=== PATIENT | female | born 1955 | race African-American/Black ===

== ENCOUNTER 2016-10-25 18:55 | Emergency (ER) | payer OTHER ==
[~2016-10-25] VITALS: Ht 167.6 cm; Wt 130.0 kg
[~2016-10-25 18:55] MED LIST: PANT20 PO
[2016-10-25 19:01] VITALS: BP 219/110; PULSE 71; RESP 22; TEMP 98.8; O2SAT 94
[2016-10-25] MEDS ORDERED: SODIUM CHLORIDE 0.9% FLUSH 10 ML FLUSH IVF PRN (19:15)
--- NOTE | 2016-10-25 19:29 | PD ---
HPI Chief Complaint: Neuro Symptoms/ Deficits Time Seen by Provider: 19:05 Travel History International Travel<30 days: No Contact w/Intl Traveler<30days: No Traveled to known affect area: No History of Present Illness HPI 61 YO F with PMH of HTN presents to the ED for evaluation of possible left- sided facial droop. Patient's son is at bedside and states that he last saw her normal around 11 AM. States that when he saw her this evening he thought that the left side of her face looked a little droopy and so brought her to the ED. On presentation the patient endorses right-sided facial pain, chronic left shoulder pain and chronic low back pain and chronic left leg pain. She states that the facial pain started "a few days ago" she denies headaches, fevers, chills, sinus congestion, rhinorrhea, sore throat, cough, shortness of breath, chest pain, abdominal pain, nausea, vomiting, dysuria. PFSH Past Medical History Cardiac Catheterization: No Cardiovascular Problems: Yes High Cholesterol: No Congestive Heart Failure: No Coronary Artery Disease: Yes Diabetes: No Diminished Hearing: No Hypertension: Yes Medical other: Yes (aortic ectasia, b/l iliac artery aneurysm, vitamin D deficiency) Musculoskeletal: Yes (" NO CARTLIAGE IN BILAT KNEES") Respiratory: Yes (PNEUMONIA) Renal Failure: Yes (chronic kidney disease stage 3) Tetanus Vaccination: Unknown Influenza Vaccination: No ?: Not Past Surgical History Coronary Artery Bypass Graft: No Hysterectomy: Yes (PARTIAL) Other Surgery: Yes (trach placement and removal) Family History Family Myocardial Infarction: Yes Social History Alcohol Use: Yes (1 TIME A MONTH) Tobacco Use: Yes (1/2 PACK A DAY-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) Substance Use: No Allergies-Medications (Allergen,Severity, Reaction): Coded Allergies: Morphine (Verified Allergy, Severe, Seizures, 11/10/10) Shellfish (Verified Allergy, Mild, ABDOMINAL PAIN, 05/13/13) Reported Meds & Prescriptions Reported Meds & Active Scripts Active Procardia XL (Nifedipine) 30 Mg Tab 30 Mg PO DAILY Augmentin (Amoxicillin-Clavulanate) 875-125 Mg Tab 1 Tab PO BID Reported Atorvastatin (Atorvastatin Calcium) 10 Mg Tab 10 Mg PO HS Ergocalciferol 50,000 Unit Cap 50,000 Units PO Q7D Losartan (Losartan Potassium) 25 Mg Tab 25 Mg PO DAILY Review of Systems Except as stated in HPI: all other systems reviewed are Neg Physical Exam Narrative GENERAL: Well-nourished, well-developed, tearful obese black female in no acute distress SKIN: Warm and dry. HEAD: Normocephalic. Atraumatic. EYES: No scleral icterus. No injection or drainage. PERRLA. EOMI. ENT: Pearly coronado tympanic membranes bilaterally. Nasal mucosa is moist. Mild edema of the right maxillary area. ++ TTP of the right maxillary sinus Oropharynx without erythema, edema or exudate. NECK: Supple, trachea midline. No JVD or lymphadenopathy. CARDIOVASCULAR: Regular rate and rhythm without murmurs, gallops, or rubs. 2+ DP and radial pulses bilaterally. RESPIRATORY: Breath sounds clear and equal bilaterally. No accessory muscle use. GASTROINTESTINAL: Abdomen soft, non-tender, nondistended. + Bowel sounds MUSCULOSKELETAL: No cyanosis, or edema. Chronic left shoulder, low back and left leg pain. Some limitations ROM secondary to this pain. Trace edema BLE. NEUROLOGICAL: Awake and alert. Cranial nerves II through XII intact. Motor and sensory grossly within normal limits. Five out of 5 muscle strength in all muscle groups. Normal speech. No pronator drift. BACK: Nontender without obvious deformity. No CVA tenderness. Data Data Last Documented VS Vital Signs Date Time Temp Pulse Resp B/P Pulse Ox O2 Delivery O2 Flow Rate FiO2 10/25/16 22:26 63 20 193/118 95 Room Air 10/25/16 19:01 98.8 Orders Electrocardiogram (10/25/16 19:09) Complete Blood Count With Diff (10/25/16 19:09) Comprehensive Metabolic Panel (10/25/16 19:09) Ckmb (Isoenzyme) Profile (10/25/16 19:09) Troponin I (10/25/16 19:09) Act Partial Throm Time (Ptt) (10/25/16 19:09) Prothrombin Time / Inr (Pt) (10/25/16 19:09) Urinalysis - C+S If Indicated (10/25/16 19:09) Ct Brain W/O Iv Contrast(Rout) (10/25/16 19:09) Ecg Monitoring (10/25/16 19:09) Iv Access Insert/Monitor (10/25/16 19:09) Oximetry (10/25/16 19:09) Sodium Chloride 0.9% Flush (Ns Flush) (10/25/16 19:15) CKMB (10/25/16 19:15) CKMB% (10/25/16 19:15) Acetaminophen (Tylenol) (10/25/16 21:30) Clonidine (Catapres) (10/25/16 22:30) Acetamin-Hydrocod 325-5 Mg ([place] 5-325 (10/25/16 22:30) Labs Laboratory Tests Test 10/25/16 10/25/16 19:15 21:30 White Blood Count 8.7 TH/MM3 Red Blood Count 5.44 MIL/MM3 Hemoglobin 15.7 GM/DL Hematocrit 47.6 % Mean Corpuscular Volume 87.6 FL Mean Corpuscular Hemoglobin 28.9 PG Mean Corpuscular Hemoglobin 33.0 % Concent Red Cell Distribution Width 16.1 % Platelet Count 153 TH/MM3 Mean Platelet Volume 11.0 FL Neutrophils (%) (Auto) 48.3 % Lymphocytes (%) (Auto) 38.0 % Monocytes (%) (Auto) 9.7 % Eosinophils (%) (Auto) 3.0 % Basophils (%) (Auto) 1.0 % Neutrophils # (Auto) 4.2 TH/MM3 Lymphocytes # (Auto) 3.3 TH/MM3 Monocytes # (Auto) 0.8 TH/MM3 Eosinophils # (Auto) 0.3 TH/MM3 Basophils # (Auto) 0.1 TH/MM3 CBC Comment DIFF FINAL Differential Comment Prothrombin Time 11.2 SEC Prothromb Time International 1.0 RATIO Ratio Activated Partial 26.4 SEC Thromboplast Time Sodium Level 139 MEQ/L Potassium Level 5.6 MEQ/L Chloride Level 106 MEQ/L Carbon Dioxide Level 23.0 MEQ/L Anion Gap 10 MEQ/L Blood Urea Nitrogen 20 MG/DL Creatinine 1.45 MG/DL Estimat Glomerular Filtration 44 ML/MIN Rate Random Glucose 104 MG/DL Calcium Level 9.2 MG/DL Total Bilirubin 0.6 MG/DL Aspartate Amino Transf 41 U/L (AST/SGOT) Alanine Aminotransferase 28 U/L (ALT/SGPT) Alkaline Phosphatase 151 U/L Total Creatine Kinase 179 U/L Creatine Kinase MB 1.2 NG/ML Troponin I LESS THAN 0.02 NG/ML Total Protein 8.5 GM/DL Albumin 3.3 GM/DL Urine Color YELLOW Urine Turbidity CLEAR Urine pH 6.5 Urine Specific [place] 1.016 Urine Protein 30 mg/dL Urine Glucose (UA) NEG mg/dL Urine Ketones NEG mg/dL Urine Occult Blood NEG Urine Nitrite NEG Urine Bilirubin NEG Urine Urobilinogen 2.0 MG/DL Urine Leukocyte Esterase NEG Urine RBC LESS THAN 1 /hpf Urine WBC LESS THAN 1 /hpf Urine Squamous Epithelial 2 /hpf Cells Urine Mucus FEW /lpf Microscopic Urinalysis Comment CULT NOT INDICATED MDM Medical Decision Making Medical Screen Exam Complete: Yes Emergency Medical Condition: Yes Differential Diagnosis hypertension versus hypertensive urgency versus ICH versus bells palsy versus UTI versus electrolyte abnormality versus other Narrative Course 61 YO F with PMH of HTN presents to the ED for evaluation of possible left- sided facial droop. Patient's son is at bedside and states that he last saw her normal around 11 AM. States that when he saw her this evening he thought that the left side of her face looked a little droopy and so brought her to the ED. On presentation the patient endorses right-sided facial pain, chronic left shoulder pain and chronic low back pain and chronic left leg pain. She states that the facial pain started "a few days ago" she denies headaches, fevers, chills, sinus congestion, rhinorrhea, sore throat, cough, shortness of breath, chest pain, abdominal pain, nausea, vomiting, dysuria. Patient's hypertensive, 219/110 on presentation. No focal neuro deficits noted on physical exam. She does have some weakness of the left arm but I think this is secondary to her musculoskeletal pain. There is mild edema of the right maxillary area and tenderness to palpation of the maxillary sinus. Trace edema in the bilateral lower extremities physical exam is otherwise unremarkable. EKG rate 62, sinus rhythm. MS interval 156, QRS 121, QTc 441. Normal axis. Right bundle branch block. No ST elevations. Reviewed by Dr. Byers. Cardiac enzymes negative 1. CBC: WBC 8.7, hemoglobin 15.7. Coags: INR 1.0. CMP: BUN 20, creatinine 1.45, chronic per chart review. UA: No culture indicated. CT of the head: Right maxillary sinusitis. No acute findings in the brain per radiology read. Discussed the results for constipation. The patient states that she is noncompliant with her antihypertensive medication secondary to headache side effect. She also indicated that she was noncompliant with her other medications. I wrote a prescription for Augmentin 875 twice a day 5 days. She is instructed take medication as prescribed. She complained of her chronic pain and was offered Tylenol which she declined. Dr. Byers evaluated the patient and administered 5 mg Lortab. Hypertension continued in the emergency room she was administered 0.1 mg clonidine. We provided a prescription for Procardia. Patient's instructed to follow-up with the primary care soon as possible for further recommendations on blood pressure medications. I did explain the long and short-term risks of such high blood pressure to the patient. Patient family indicated understanding of instructions and are agreeable to the care plan. This patient is stable and discharged home. Diagnosis Primary Impression: Right maxillary sinusitis Additional Impressions: Chronic hypertension Noncompliance with medication regimen Referrals: Primary Care Physician Patient Instructions: General Instructions, Sinusitis (ED) Additional Instructions: Rest, hydrate. Take all antibiotics as prescribed, even if your symptoms resolve. Follow-up with your primary care provider tomorrow regarding her difficulties with current blood pressure medications. Return to the ED for any urgent or emergent medical condition. Med/Other Pt SpecificInfo: Prescription(s) given Scripts Nifedipine ER 24 HR (Procardia XL)30 Mg Tab30 Mg PO DAILY #30 TAB Ref 0 Prov:Shara Byers MD 10/25/16 Amoxicillin-Clavulanate (Augmentin)875-125 Mg Tab1 Tab PO BID #10 TAB Ref 0 Prov:Shara Byers MD 10/25/16 Disposition: 01 DISCHARGE HOME Condition: Stable Leanna Lima Oct 25, 2016 19:29
--- NOTE | 2016-10-25 19:31 | RADRPT ---
EXAM DATE/TIME: 10/25/2016 19:18 [facility] COMPARISON: No previous studies available for comparison. INDICATIONS : Altered mental status, general weakness and right sided facial pain today. RADIATION DOSE: 56.35 CTDIvol (mGy) MEDICAL HISTORY : Cardiovascular disease. Hypertension. SURGICAL HISTORY : Hysterectomy. ENCOUNTER: Initial ACUITY: 1 day PAIN SCALE: 5/10 LOCATION: Right face TECHNIQUE: Multiple contiguous axial images were obtained of the head. Using automated exposure control and adj ustment of the mA and/or kV according to patient size, radiation dose was kept as low as reasonably a chievable to obtain optimal diagnostic quality images. FINDINGS: CEREBRUM: The ventricles are normal for age. No evidence of midline shift, mass lesion, hemorrhage or acute in farction. No extra-axial fluid collections are seen. POSTERIOR FOSSA: The cerebellum and brainstem are intact. The 4th ventricle is midline. The cerebellopontine angle i s unremarkable. EXTRACRANIAL: There is an air-fluid level in the right maxillary sinus. There is mild mucosal thickening in the ri ght sphenoid sinus. The visualized portion of the orbits is intact. SKULL: The calvaria is intact. No evidence of skull fracture. CONCLUSION: 1. Air-fluid level in right maxillary sinus suggests possible acute sinusitis. 2. No acute findings in the brain. Colby Ford MD on October 25, 2016 at 19:27 Board Certified Radiologist. This report was verified electronically.
[2016-10-25 19:50] VITALS: BP 217/108; PULSE 60; RESP 22; O2SAT 95
[2016-10-25 20:03] LABS: AUTOMATED NEUTROPHIL # 4.2 TH/MM3 (1.8-7.7); BASOPHIL # 0.1 TH/MM3 (0-0.2); EOSINOPHIL # 0.3 TH/MM3 (0-0.4); HEMATOCRIT 47.6 % (35.0-46.0); HEMO FLAGS DIFF FINAL; LYMPHOCYTE # 3.3 TH/MM3 (1.0-4.8); MEAN CELL VOLUME 87.6 FL (80.0-100.0); MEAN CORPUSCULAR HEMOGLOBIN 28.9 PG (27.0-34.0); MONO % 9.7 % (0.0-8.0); NEUT % 48.3 % (16.0-70.0); PLATELET COUNT 153 TH/MM3 (150-450); RED BLOOD COUNT 5.44 MIL/MM3 (4.00-5.30); RED CELL DISTRIBUTION WIDTH 16.1 % (11.6-17.2); WHITE BLOOD COUNT 8.7 TH/MM3 (4.0-11.0)
[2016-10-25] MEDS ORDERED: ATOR10TA15 PO (20:07)
[2016-10-25] MEDS ORDERED: ERGO1CAP30 PO (20:07)
[2016-10-25] MEDS ORDERED: LOSA25TA PO (20:07)
[2016-10-25 20:12] LABS: APTT (PATIENT) 26.4 SEC (24.3-30.1); PROTHROMBIN TIME - PATIENT 11.2 SEC (9.8-11.6)
[2016-10-25 20:30] VITALS: BP 204/113; PULSE 60; RESP 20; O2SAT 94
[2016-10-25 20:32] LABS: ALT (GPT) 28 U/L (10-53)
[2016-10-25 20:39] LABS: ALKALINE PHOSPHATASE 151 U/L (45-117); ANION GAP 10 MEQ/L (5-15); AST (GOT) 41 U/L (15-37); BLOOD UREA NITROGEN 20 MG/DL (7-18); CHLORIDE 106 MEQ/L (98-107); CREATINE KINASE 179 U/L (26-192); GLOMERULAR FILTRATION RATE 44 ML/MIN (>89); POTASSIUM 5.6 MEQ/L (3.5-5.1); SODIUM (NA) 139 MEQ/L (136-145); TOTAL BILIRUBIN ADULT 0.6 MG/DL (0.2-1.0)
[2016-10-25 20:51] LABS: CKMB 1.2 NG/ML (0.5-3.6)
[2016-10-25 21:00] VITALS: BP 207/93; PULSE 62; RESP 20; O2SAT 94
--- NOTE | 2016-10-25 21:27 | PD ---
Physical Exam Narrative General: The patient is a well-developed well-nourished female in no acute distress. Head and Neck exam: Head is normocephalic atraumatic. Eyes: EOMI, pupils are equal round and reactive to light. Nose: Midline septum with mildly erythematous edematous nasal mucosa. Sinuses: The patient has sinus tenderness on palpation over the right maxillary sinus. Mouth: Dentition unremarkable. Moist mucus membranes. Posterior oropharynx is not erythematous. No tonsillar hypertrophy. Uvula midline. Airway patent. Neck: No palpable lymphadenopathy. No nuchal rigidity. No thyromegaly. Cardiovascular: Regular rate and rhythm without murmurs, gallops, or rubs. No pulse deficit to the extremities. Lungs: Clear to auscultation bilaterally. No wheezes, rhonchi, or rales. Abdomen: Soft, without tenderness to palpation in all 4 quadrants of the abdomen. No guarding, rebound, or rigidity. Normal bowel sounds are audible. No tenderness on palpation of McBurney's point. Extremities: No clubbing or cyanosis. The patient has trace pedal edema. 2+ pulses in all 4 extremities. Neurologic Exam: Cranial nerves 2-12 were intact on exam. Strength is 5/5 in all 4 extremities. No sensory deficits noted. Skin Exam: No rash noted. Intact skin that is warm and dry. Data Data Last Documented VS Vital Signs Date Time Temp Pulse Resp B/P Pulse Ox O2 Delivery O2 Flow Rate FiO2 10/25/16 22:26 63 20 193/118 95 Room Air 10/25/16 19:01 98.8 Orders Electrocardiogram (10/25/16 19:09) Complete Blood Count With Diff (10/25/16 19:) Comprehensive Metabolic Panel (10/25/16 19:) Ckmb (Isoenzyme) Profile (10/25/16 19:09) Troponin I (10/25/16 19:) Act Partial Throm Time (Ptt) (10/25/16:) Prothrombin Time / Inr (Pt) (10/25/16 19:09) Urinalysis - C+S If Indicated (10/25/16 19:09) Ct Brain W/O Iv Contrast(Rout) (10/25/16 19:09) Ecg Monitoring (10/25/16:) Iv Access Insert/Monitor (10/25/16 19:09) Oximetry (10/25/16 19:09) Sodium Chloride 0.9% Flush (Ns Flush) (10/25/16 19:15) CKMB (10/25/16 19:15) CKMB% (10/25/16 19:15) Acetaminophen (Tylenol) (10/25/16 21:30) Clonidine (Catapres) (10/25/16 22:30) Acetamin-Hydrocod 325-5 Mg ([place] 5-325 (10/25/16 22:30) Labs Laboratory Tests Test 10/25/16 10/25/16 19:15 21:30 White Blood Count 8.7 TH/MM3 Red Blood Count 5.44 MIL/MM3 Hemoglobin 15.7 GM/DL Hematocrit 47.6 % Mean Corpuscular Volume 87.6 FL Mean Corpuscular Hemoglobin 28.9 PG Mean Corpuscular Hemoglobin 33.0 % Concent Red Cell Distribution Width 16.1 % Platelet Count 153 TH/MM3 Mean Platelet Volume 11.0 FL Neutrophils (%) (Auto) 48.3 % Lymphocytes (%) (Auto) 38.0 % Monocytes (%) (Auto) 9.7 % Eosinophils (%) (Auto) 3.0 % Basophils (%) (Auto) 1.0 % Neutrophils # (Auto) 4.2 TH/MM3 Lymphocytes # (Auto) 3.3 TH/MM3 Monocytes # (Auto) 0.8 TH/MM3 Eosinophils # (Auto) 0.3 TH/MM3 Basophils # (Auto) 0.1 TH/MM3 CBC Comment DIFF FINAL Differential Comment Prothrombin Time 11.2 SEC Prothromb Time International 1.0 RATIO Ratio Activated Partial 26.4 SEC Thromboplast Time Sodium Level 139 MEQ/L Potassium Level 5.6 MEQ/L Chloride Level 106 MEQ/L Carbon Dioxide Level 23.0 MEQ/L Anion Gap 10 MEQ/L Blood Urea Nitrogen 20 MG/DL Creatinine 1.45 MG/DL Estimat Glomerular Filtration 44 ML/MIN Rate Random Glucose 104 MG/DL Calcium Level 9.2 MG/DL Total Bilirubin 0.6 MG/DL Aspartate Amino Transf 41 U/L (AST/SGOT) Alanine Aminotransferase 28 U/L (ALT/SGPT) Alkaline Phosphatase 151 U/L Total Creatine Kinase 179 U/L Creatine Kinase MB 1.2 NG/ML Troponin I LESS THAN 0.02 NG/ML Total Protein 8.5 GM/DL Albumin 3.3 GM/DL Urine Color YELLOW Urine Turbidity CLEAR Urine pH 6.5 Urine Specific [place] 1.016 Urine Protein 30 mg/dL Urine Glucose (UA) NEG mg/dL Urine Ketones NEG mg/dL Urine Occult Blood NEG Urine Nitrite NEG Urine Bilirubin NEG Urine Urobilinogen 2.0 MG/DL Urine Leukocyte Esterase NEG Urine RBC LESS THAN 1 /hpf Urine WBC LESS THAN 1 /hpf Urine Squamous Epithelial 2 /hpf Cells Urine Mucus FEW /lpf Microscopic Urinalysis Comment CULT NOT INDICATED MDM Medical Record Reviewed: Yes Supervised Visit with JOSÉ MIGUEL: Yes Interpretation(s) Last Impressions Head CT 10/25/161908 Signed Impressions: Service Date/Time: Tuesday, October 25, 2016 19:18 - CONCLUSION: 1. Air-fluid level in right maxillary sinus suggests possible acute sinusitis. 2. No acute findings in the brain. Colby Ford MD Narrative Course I, Dr. Byers, have reviewed the advance practice practitioner's documentation and am in agreement, met with the patient face to face, made the diagnosis, and the medical decision making was done by me. The patient was initially evaluated by Leanna. Please see her complete history and physical. *My assessment and Findings: The patient is a 61-year-old female who presents to [facility] emergency department with a reported history of facial pain and what appeared to be facial droop according to the family. The patient denies having any drooling, slurred speech, new extremity weakness, or new numbness or tingling to her extremities. She denies having any difficulty with word finding ability. A workup ensued to further evaluate. The patient's main complaint the size of facial pain is related to chronic pain in her extremities and back. The patient additionally arrives with an elevated blood pressure. The patient reports that her losartan causes her to have headaches, therefore she has not been taking it consistently. The patient's examination revealed a normal neurologic examination with right maxillary sinus tenderness on palpation. During the course of the patients emergency department visit, the patients history, examination, and differential diagnosis were reviewed with the patient. The patient had IV access obtained and blood work sent for analysis. The patient was placed on a cardiac cath tech with oximetry and blood pressure monitoring. The patient was initially provided acetaminophen for pain, however she refuses to take this that she reports that it does not work. The acetaminophen was canceled and the patient was given Lortab 5 mg by mouth 1. The patient was given clonidine 0.1 mg by mouth 1 for hypertension related to her medication noncompliance. The patients laboratory studies were reviewed and remarkable for a white count is 8.7, hemoglobin 15.7, platelets 153, 90.7 monocytes, CMP is remarkable for a potassium of 5.6 with moderate hemolysis noted, BUN 20, creatinine 1.45 in a patient with a history of renal insufficiency, AST 41, alkaline phosphatase 151 , CPK 179, troponin I less than 0.02. PT 11.2, PTT 20 6. urinalysis is unremarkable Radiology studies were reviewed and remarkable for a CT scan of the brain shows an air-fluid level in the right maxillary sinus suggestive of an acute sinusitis , no other acute abnormality noted in the brain. The patient's symptoms appear to be related to an acute maxillary sinusitis. The patient will be discharged home with an antibiotic. The patient was again instructed regarding the importance of close follow-up with her primary care physician regarding her hypertension medication noncompliance. She was agreeable with the plan to try a new medication for hypertension and a different class. The patient was given a prescription for Procardia. The patient is resting comfortably and feels better, is alert and in no distress. The patients results and examination findings were discussed with the patient. The repeat examination is unremarkable and benign. The history, exam, diagnostic testing, and current condition do not suggest any significant pathology to warrant further testing, continued ED treatment, admission, or surgical evaluation at this point. The vital signs have been stable. The patient does not have uncontrollable pain, intractable vomiting, or other significant symptoms. The patient's condition is stable and appropriate for discharge. The patient will pursue further outpatient evaluation with a primary care physician or other designated or consulting physician as indicated in the discharge instructions. The patient expressed understanding and was agreeable with this plan. Diagnosis Primary Impression: Right maxillary sinusitis Additional Impressions: Chronic hypertension Noncompliance with medication regimen Scripts Nifedipine ER 24 HR (Procardia XL)30 Mg Tab30 Mg PO DAILY #30 TAB Ref 0 Prov:Shara Byers MD 10/25/16 Amoxicillin-Clavulanate (Augmentin)875-125 Mg Tab1 Tab PO BID #10 TAB Ref 0 Prov:Shara Byers MD 10/25/16 Shara Byers MD Oct 25, 2016 21:27
[2016-10-25] MEDS ORDERED: ACETAMINOPHEN 325 MG TAB PO ONE (21:30)
[2016-10-25] MEDS ORDERED: AUGM875T3 PO (21:44)
[2016-10-25 21:53] LABS: BLOOD, URINE NEG (NEG); COMMENT (UR) CULT NOT INDICATED; CULTURE IF INDICATED CULT NOT INDICATED; GLUCOSE,URINE NEG (NEG); KETONE, URINE NEG (NEG); MUCUS URINE FEW /lpf (OCC); NITRITE,URINE NEG (NEG); PH, URINE 6.5 (5.0-8.5); SQUAMOUS EPITHELIAL CELL URINE 2 /hpf (0-5); URINE COLOR YELLOW (YELLW/STRAW)
[2016-10-25 22:26] VITALS: BP 193/118; PULSE 63; RESP 20; O2SAT 95
[2016-10-25] MEDS ORDERED: ACETAMINOPHEN/HYDROcodone 325 MG/5 MG TAB PO ONE (22:30)
[2016-10-25] MEDS ORDERED: NIFE1TAB85 PO (22:30)
[2016-10-25] MEDS ORDERED: cloNIDine HCL 0.1 MG TAB PO ONE (22:30)
--- NOTE | 2016-10-26 11:27 | EKG ---
Date Performed: 10/25/2016 Time Performed: 19:12:04 PTAGE: 61 years EKG: Sinus rhythm LEFT ATRIAL ENLARGEMENT RIGHT BUNDLE BRANCH BLOCK Since previous tracing, no significant change note d ABNORMAL ECG PREVIOUS TRACING : 05/13/2013 22.56.56 DOCTOR: Johann Byers Interpretating Date/Time 10/26/2016 11:26:15
== END 2016-10-25 23:22 | disposition home or self-care (01) ==
LOC: NEPE 18:55
DX: J32.0 Chronic maxillary sinusitis (principal); I10 Essential (primary) hypertension; R94.31 Abnormal electrocardiogram [ECG] [EKG]; M25.512 Pain in left shoulder; G89.29 Other chronic pain; M54.5 Low back pain; I25.10 Atherosclerotic heart disease of native coronary artery without angina pectoris; Z91.14 Patient's other noncompliance with medication regimen; F17.210 Nicotine dependence, cigarettes, uncomplicated
CPT/HCPCS: 70450; 80053; 81001; 82550; 82552; 84484; 85025; 85610; 85730; 93005; 99285

== ENCOUNTER 2016-10-27 07:15 | Inpatient (IN) | payer OTHER, MEDICARE ==
[~2016-10-27] VITALS: Ht 167.6 cm; Wt 126.0 kg
[2016-10-27] VITALS (16 sets, daily range): BP systolic 122–139; BP diastolic 60–78; PULSE 34–50; RESP 18–22; TEMP 97.9–99.1; O2SAT 93–98
[~2016-10-27 07:15] MED LIST changes: +ATOR10TA15 PO; +AUGM875T3 PO; +ERGO1CAP30 PO; +LOSA25TA PO; +NIFE1TAB85 PO; -PANT20 PO
[2016-10-27] MEDS ORDERED: AMOX TR K (07:36)
--- NOTE | 2016-10-27 07:55 | PD ---
HPI Chief Complaint: Headache Time Seen by Provider: 07:52 Travel History International Travel<30 days: No Contact w/Intl Traveler<30days: No Traveled to known affect area: No History of Present Illness HPI 61-year-old female patient recently diagnosed with hypertension, started on nifedipine last week for hypertension, seen in the ER for sinusitis last week as well and was started on Augmentin, presents to the ER today because she states that she is continuing to have left-sided headaches and this morning started having palpitations, felt like her heart beat was low, feels like there is some 5 out of 10 substernal pressure. She denies any shortness of breath, fevers, vomiting, or other symptoms. Modifying Factors: None Associated Signs & Symptoms: Palpitations, chest discomfort, ongoing headache Risk Factors: Recent diagnosis of hypertension and sinusitis PFSH Past Medical History Cardiac Catheterization: No Cardiovascular Problems: Yes High Cholesterol: No Congestive Heart Failure: No Coronary Artery Disease: Yes Diabetes: No Diminished Hearing: No Hypertension: Yes Musculoskeletal: Yes (" NO CARTLIAGE IN BILAT KNEES") Respiratory: Yes (PNEUMONIA) Renal Failure: Yes (chronic kidney disease stage 3) Past Surgical History Coronary Artery Bypass Graft: No Hysterectomy: Yes (PARTIAL) Other Surgery: Yes (trach placement and removal) Social History Alcohol Use: Yes (1 TIME A MONTH) Tobacco Use: Yes (1/2 PACK A DAY-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) Substance Use: No Allergies-Medications (Allergen,Severity, Reaction): Coded Allergies: Morphine (Verified Allergy, Severe, Seizures, 10/27/16) Shellfish (Verified Allergy, Mild, ABDOMINAL PAIN, 10/27/16) Reported Meds & Prescriptions Reported Meds & Active Scripts Active Procardia XL (Nifedipine) 30 Mg Tab 30 Mg PO DAILY Reported [Amox Tr-K] 825 Tab BID Atorvastatin (Atorvastatin Calcium) 10 Mg Tab 10 Mg PO HS Ergocalciferol 50,000 Unit Cap 50,000 Units PO Q7D Losartan (Losartan Potassium) 25 Mg Tab 25 Mg PO DAILY Review of Systems Except as stated in HPI: all other systems reviewed are Neg Physical Exam Narrative GENERAL: Well-developed elderly -[place] female patient currently in mild distress, mildly anxious. Awake and oriented 3. SKIN: Focused skin assessment warm/dry. HEAD: Atraumatic. Normocephalic. EYES: Pupils equal and round. No scleral icterus. No injection or drainage. ENT: No nasal bleeding or discharge. Mucous membranes pink and moist. NECK: Trachea midline. No JVD. CARDIOVASCULAR: Slow and regular rhythm. No murmur appreciated. Pulses are present and equal bilaterally. RESPIRATORY: No accessory muscle use. Clear to auscultation. Breath sounds equal bilaterally. GASTROINTESTINAL: Abdomen soft, non-tender, nondistended. Hepatic and splenic margins not palpable. MUSCULOSKELETAL: No obvious deformities. No clubbing. No cyanosis. No edema. NEUROLOGICAL: Awake and alert. No obvious cranial nerve deficits. Motor grossly within normal limits. Normal speech. PSYCHIATRIC: Appropriate mood and affect; insight and judgment normal. Data Data Last Documented VS Vital Signs Date Time Temp Pulse Resp B/P Pulse Ox O2 Delivery O2 Flow Rate FiO2 10/27/16 07:56 43 126/77 132/70 10/27/16 07:53 95 Room Air 10/27/16 07:19 99.1 22 Orders Electrocardiogram (10/27/16 07:52) B-Type Natriuretic Peptide (10/27/16 07:52) Ckmb (Isoenzyme) Profile (10/27/16 07:52) Complete Blood Count With Diff (10/27/16 07:52) Comprehensive Metabolic Panel (10/27/16 07:52) Magnesium (Mg) (10/27/16 07:52) Prothrombin Time / Inr (Pt) (10/27/16 07:52) Act Partial Throm Time (Ptt) (10/27/16 07:52) Troponin I (10/27/16 07:52) Chest, Single Ap (10/27/16 07:52) Ecg Monitoring (10/27/16 07:52) Bilateral Bp Monitoring (10/27/16 07:52) Iv Access Insert/Monitor (10/27/16 07:52) Oximetry (10/27/16 07:52) Oxygen Administration (10/27/16 07:52) Sodium Chloride 0.9% Flush (Ns Flush) (10/27/16 08:00) Consult Cardiology (10/27/16 ) Labs Laboratory Tests Test 10/27/16 07:50 White Blood Count 7.9 TH/MM3 Red Blood Count 5.33 MIL/MM3 Hemoglobin 15.5 GM/DL Hematocrit 46.4 % Mean Corpuscular Volume 87.2 FL Mean Corpuscular Hemoglobin 29.2 PG Mean Corpuscular Hemoglobin 33.4 % Concent Red Cell Distribution Width 16.3 % Platelet Count 138 TH/MM3 Mean Platelet Volume 11.3 FL Neutrophils (%) (Auto) 44.0 % Lymphocytes (%) (Auto) 41.1 % Monocytes (%) (Auto) 12.5 % Eosinophils (%) (Auto) 1.9 % Basophils (%) (Auto) 0.5 % Neutrophils # (Auto) 3.5 TH/MM3 Lymphocytes # (Auto) 3.3 TH/MM3 Monocytes # (Auto) 1.0 TH/MM3 Eosinophils # (Auto) 0.2 TH/MM3 Basophils # (Auto) 0.0 TH/MM3 CBC Comment DIFF FINAL Differential Comment Prothrombin Time 11.4 SEC Prothromb Time International 1.0 RATIO Ratio Activated Partial 26.1 SEC Thromboplast Time Sodium Level 138 MEQ/L Potassium Level 4.2 MEQ/L Chloride Level 106 MEQ/L Carbon Dioxide Level 23.3 MEQ/L Anion Gap 9 MEQ/L Blood Urea Nitrogen 25 MG/DL Creatinine 1.57 MG/DL Estimat Glomerular Filtration 40 ML/MIN Rate Random Glucose 97 MG/DL Calcium Level 9.2 MG/DL Magnesium Level 2.0 MG/DL Total Bilirubin 0.5 MG/DL Aspartate Amino Transf 15 U/L (AST/SGOT) Alanine Aminotransferase 23 U/L (ALT/SGPT) Alkaline Phosphatase 126 U/L Total Creatine Kinase 90 U/L Troponin I 0.02 NG/ML B-Type Natriuretic Peptide 384 PG/ML Total Protein 7.9 GM/DL Albumin 3.3 GM/DL MDM Medical Decision Making Medical Screen Exam Complete: Yes Emergency Medical Condition: Yes Medical Record Reviewed: Yes Interpretation(s) EKG shows idioventricular rhythm at a rate of 38 bpm with no signs of acute ST- T elevations but there are notable T-wave inversions in the inferior leads. Differential Diagnosis Palpitations, headaches, chest discomfortdysrhythmias versus ACS versus dehydration versus metabolic issues versus sepsis Narrative Course Case was discussed with Dr. Dario cardenas who saw the EKG and states she will see the patient. Lab work did not indicate any significant metabolic issues and cardiac enzymes are negative. Case is discussed with Dr. Patel for admission. Diagnosis Primary Impression: Symptomatic bradycardia Additional Impression: Chest pain Admitting Information Admitting Physician Requests: Admit Ryan Garcia MD Oct 27, 2016 07:55
[2016-10-27] MEDS ORDERED: SODIUM CHLORIDE 0.9% FLUSH 10 ML FLUSH IVF PRN (08:00)
[2016-10-27 08:36] LABS: APTT (PATIENT) 26.1 SEC (24.3-30.1); PROTHROMBIN TIME - PATIENT 11.4 SEC (9.8-11.6)
[2016-10-27 08:37] LABS: AUTOMATED NEUTROPHIL # 3.5 TH/MM3 (1.8-7.7); BASOPHIL % 0.5 % (0.0-2.0); EOSINOPHIL # 0.2 TH/MM3 (0-0.4); EOSINOPHIL % 1.9 % (0.0-4.0); HEMATOCRIT 46.4 % (35.0-46.0); HEMO FLAGS DIFF FINAL; LYMPH % 41.1 % (9.0-44.0); LYMPHOCYTE # 3.3 TH/MM3 (1.0-4.8); MEAN CELL VOLUME 87.2 FL (80.0-100.0); MEAN CORPUSCULAR HEMOGLOBIN 29.2 PG (27.0-34.0); MEAN CORPUSCULAR HGB CONC 33.4 % (32.0-36.0); MONO % 12.5 % (0.0-8.0); PLATELET COUNT 138 TH/MM3 (150-450); RED BLOOD COUNT 5.33 MIL/MM3 (4.00-5.30); RED CELL DISTRIBUTION WIDTH 16.3 % (11.6-17.2); WHITE BLOOD COUNT 7.9 TH/MM3 (4.0-11.0)
[2016-10-27 08:47] LABS: ALKALINE PHOSPHATASE 126 U/L (45-117); ALT (GPT) 23 U/L (10-53); ANION GAP 9 MEQ/L (5-15); AST (GOT) 15 U/L (15-37); BICARBONATE 23.3 MEQ/L (21.0-32.0); BLOOD UREA NITROGEN 25 MG/DL (7-18); CHLORIDE 106 MEQ/L (98-107); GLOMERULAR FILTRATION RATE 40 ML/MIN (>89); POTASSIUM 4.2 MEQ/L (3.5-5.1); SODIUM (NA) 138 MEQ/L (136-145); TOTAL BILIRUBIN ADULT 0.5 MG/DL (0.2-1.0)
[2016-10-27 08:57] LABS: CREATINE KINASE 90 U/L (26-192)
--- NOTE | 2016-10-27 09:06 | RADRPT ---
EXAM DATE/TIME: 10/27/2016 07:57 [facility] COMPARISON: CHEST SINGLE AP, May 13, 2013, 23:04. INDICATIONS : Shortness of breath. MEDICAL HISTORY : Hypertension. Renal failure, chronic. Coronary Artery Disease SURGICAL HISTORY : None. ENCOUNTER: Initial ACUITY: 3 days PAIN SCORE: 0/10 LOCATION: Bilateral chest FINDINGS: A single view of the chest demonstrates the lungs to be symmetrically aerated without evidence of mas s, infiltrate or effusion. The cardiomediastinal contours are unremarkable. Osseous structures are intact. CONCLUSION: No acute disease. No significant change has occurred. Keenan Bradley MD on October 27, 2016 at 9:04 Board Certified Radiologist. This report was verified electronically.
[2016-10-27] MEDS ORDERED: SODIUM CHLORIDE 0.9% FLUSH 10 ML FLUSH IV FLUSH PRN (09:30)
[2016-10-27] MEDS ORDERED: ACETAMINOPHEN 325 MG TAB PO PRN (09:30)
[2016-10-27] MEDS ORDERED: NALOXONE HCL 0.4 MG/ML AMP IV PRN (09:30)
[2016-10-27] MEDS ORDERED: ONDANSETRON HCL 4 MG/2 ML VIAL IVP PRN (09:30)
[2016-10-27] MEDS ORDERED: ONDANSETRON HCL 4 MG/2 ML VIAL IV PUSH ONE (09:30)
[2016-10-27] MEDS: SODIUM CHLOR 0.9% 1000 ML INJ 1,000 ML IV SCH ×2 (09:37→22:40)
--- NOTE | 2016-10-27 10:10 | MB ---
cc: GARY ABURTO MD DATE OF CONSULTATION 10/27/2016 DATE OF 1955 REASON FOR CONSULTATION Bradycardia HISTORY OF PRESENT ILLNESS Ms. Leah Verma is a 61-year-old female who does have a history of hypertension. She presented to the emergency room with complaints of headache and a slow heart rate. She indeed was found to have a heart rate around 40 and cardiology was subsequently consulted. Of note, the patient was in the emergency room on 10-25 when she presented with a possible left-sided facial droop. She was subsequently diagnosed with a right maxillary sinusitis, chronic hypertension and noncompliance. The patient reports to me that her losartan was causing severe headache and thus she could not take that medication. Regarding her facial droop, this was felt to be either actually facial pain and apparently related to the sinusitis. She was subsequently started on Augmentin and Nifedical XL. Her losartan was discontinued. The patient today denies any complaints of chest pain, shortness of breath, weakness or dizziness. She does note that her heart rate is slow by palpation as she checked her pulse. She does complain of the headache and that has caused some nausea. She denies any chest pain, but does report that she had some indigestion that was relieved with belching. PAST MEDICAL HISTORY Significant for: 1. Hypertension 2. Hyperlipidemia 3. Sinusitis 4. Pneumonia ALLERGIES MORPHINE AND SHELLFISH OUTPATIENT MEDICATIONS Include: 1. Procardia 2. Atorvastatin REVIEW OF SYSTEMS Except as mentioned in HPI, all 12 systems are negative. SOCIAL HISTORY The patient does occasionally have alcohol. She smokes a half pack of cigarettes a day. FAMILY HISTORY Positive for hypertension. PHYSICAL EXAM On physical examination, vital signs 43, 126/77 with a respiratory rate of 20. GENERAL: She is a well-appearing, morbidly obese female who is in no apparent distress. NECK: Her neck is free from JVD. LUNGS: The lungs are bilaterally clear to auscultation. CARDIOVASCULAR: On examination, she has normal S1 and S2. I did not appreciate any murmurs, rubs or gallops. ABDOMEN: Soft. EXTREMITIES: Free from edema. EKG shows a junctional escape rhythm with interventricular conduction delay. There are nonspecific ST-T wave changes. Telemetry does show intermittent complete heart block alternating with this junctional escape rhythm. Head CT does show a air-fluid levels in the right maxillary sinus suggesting possible acute sinusitis. There were no acute findings in the brain. LABORATORY VALUES Hemoglobin 15.5. The creatinine is 1.57. The troponin is 0.02 and BMP is 384. IMPRESSION Complete heart block. The patient does have a heart rate around 40. She does dip down to around 36, but is amazingly completely asymptomatic. Thus at this point, I would not actively pace her. I did debate whether to start her on Isuprel. For both of these issues so asymptomatic, I would not start them. The pace is at the bedside. The Nifedical will be stopped as there is a small AV letha blocking property to this. The Nifedical will be stopped as there is a small AV letha blocking properties to this. I am also concerned that it may have been in part exacerbated by the nausea and a vagal response. In any case, she will be observed closely for this. I did discuss the possibility of a permanent pacemaker with her. She is adamantly opposed to that at this time. As well with possible sinusitis/UTI, this would be suboptimal timing. Thus at this point, we will continue with medical management and consider pacer as appropriate in several days. Hypertension - The patient does have some hypertension and has had problems with losartan. She as well is having some renal insufficiency. I am going to place her on amlodipine 5 mg a day. Headaches - This will be managed by the primary team. Sinusitis - This will also be managed by the primary team. Gary Aburto M.D. DEYA/JOSLYN /9:38 AM /10:00 AM
[2016-10-27 13:43] LABS: BLOOD, URINE NEG (NEG); COMMENT (UR) CULT NOT INDICATED; CULTURE IF INDICATED CULT NOT INDICATED; GLUCOSE,URINE NEG (NEG); HYALINE CAST, URINE 4 /lpf (RARE); KETONE, URINE NEG (NEG); MUCUS URINE FEW /lpf (OCC); NITRITE,URINE NEG (NEG); PH, URINE 5.5 (5.0-8.5); SQUAMOUS EPITHELIAL CELL URINE 8 /hpf (0-5); URINE COLOR YELLOW (YELLW/STRAW)
--- NOTE | 2016-10-27 13:58 | EKG ---
Date Performed: 10/27/2016 Time Performed: 07:55:38 PTAGE: 61 years EKG: BASELINE ARTIFACT PRESENT. UNCERTAIN REGULAR RHYTHM MARKED RIGHT AXIS DEVIATION INTRAVENTRI CULAR CONDUCTION DELAY PROBABLE LATERAL MYOCARDIAL INFARCTION ABNORMAL ECG INTERPRETATION BASED ON A DEFAULT AGE OF 40 YEARS I cannot accurately interpret with baseline artifact. NO PREVIOUS TRACING DOCTOR: Kunal Shah Interpretating Date/Time 10/27/2016 13:57:09
--- NOTE | 2016-10-27 15:40 | HHI.HP ---
[facility] Service [facility] Primary Care Physician Kunal Arguello Admission Diagnosis symptomatic bradycardia/chest pain Diagnoses: Chief Complaint: Slow heart rate and headache Travel History International Travel<30 Days: No Contact w/Intl Traveler <30 Da: No Traveled to Known Affected Are: No History of Present Illness The patient is a 61-year-old female with a past medical history of hypertension who is presenting to the hospital with a slow heart rate and headache. The patient came to the hospital on the because of a severe headache. She was found to be hypertensive and also had sinusitis. She was discharged on nifedipine and Augmentin. The patient continued to have headaches. She describes the headache as like a migraine. It is a severe headache at the top of her head and radiates down the back of the right side of her head and down her neck. She says she has been getting these severe headaches ever since she was started on a blood pressure medication on October 15. During the patient's episode of headache she wanted to feel her pulse to see if everything was all right. She said she had a hard time feeling of irregular heartbeat so she came to the hospital. The patient says her headache is gone. She said she did talk with the catering assistant earlier and has no interest in having a pacemaker placed. She mentions that medications seem to hurt her body and does not like to take them if she does not absolutely need them. She says vitamin D hurts the bones of her legs. Review of Systems Except as stated in HPI: all other systems reviewed are Neg Past Family Social History Past Medical History Hypertension Pneumonia status post intubation Migraines Alcohol abuse Past Surgical History Partial hysterectomy Allergies: Coded Allergies: Morphine (Verified Allergy, Severe, Seizures, 10/27/16) Shellfish (Verified Allergy, Mild, ABDOMINAL PAIN, 10/27/16) Active Ordered Medications Current Medications Medications (Trade) Dose Ordered Sig/Chip Route Start Time Stop Time Status Last Admin (NS 1000 ml Inj) 1,000 ml @ 75 mls/hr [id number] IV 10/27/16 09:20 10/27/16 22:39 10/27/16 09:37 (NS Flush) 2 ml UNSCH PRN IV FLUSH 10/27/16 09:30 (NS Flush) 2 ml BID IV FLUSH 10/27/16 21:00 (Tylenol) 650 mg Q4H PRN PO 10/27/16 09:30 (Zofran Inj) 4 mg Q6H PRN IVP 10/27/16 09:30 (Tylenol) 650 mg Q6H PRN PO 10/27/16 09:30 (Barbara-Colace) 1 tab BID PO 10/27/16 21:00 (Lipitor) 10 mg HS PO 10/27/16 21:00 (Norvasc) 5 mg DAILY PO 10/28/16 09:00 Family History Her mother had cirrhosis from alcohol abuse Social History The patient quit drinking in 2006. She quit smoking last year. She denies any drug use. Physical Exam Vital Signs Vital Signs Date Time Temp Pulse Resp B/P Pulse Ox O2 Delivery O2 Flow Rate FiO2 10/27/16 15:00 40 10/27/16 15:00 98.1 36 20 137/60 93 10/27/16 13:10 36 18 122/75 95 Room Air 10/27/16 12:30 36 18 124/68 97 Room Air 10/27/16 11:00 38 18 125/78 96 Room Air 10/27/16 09:00 38 139/65 10/27/16 07:56 43 126/77 132/70 10/27/16 07:53 95 Room Air 10/27/16 07:53 95 Room Air 10/27/16 07:19 99.1 41 22 135/71 97 Physical Exam GENERAL: This is a well-nourished, well-developed patient, in no apparent distress. SKIN: No rashes, ecchymoses or lesions. Cool and dry. HEAD: Atraumatic. Normocephalic. No temporal or scalp tenderness. EYES: Pupils equal round and reactive. Extraocular motions intact. No scleral icterus. No injection or drainage. ENT: Nose without bleeding, purulent drainage or septal hematoma. Throat without erythema, tonsillar hypertrophy or exudate. Uvula midline. Airway patent. NECK: Trachea midline. No JVD or lymphadenopathy. Supple, nontender, no meningeal signs. CARDIOVASCULAR: Bradycardic without murmurs, gallops, or rubs. RESPIRATORY: Clear to auscultation. Breath sounds equal bilaterally. No wheezes , rales, or rhonchi. GASTROINTESTINAL: Abdomen soft, non-tender, nondistended. No hepato-splenomegaly , or palpable masses. No guarding. MUSCULOSKELETAL: Extremities without clubbing, cyanosis. Trace edema. NEUROLOGICAL: Awake and alert. Cranial nerves II through XII intact. Motor and sensory grossly within normal limits. Five out of 5 muscle strength in all muscle groups. Normal speech. PSYCH: Anxious at times. Laboratory Laboratory Tests Test 10/27/16 10/27/16 07:50 13:15 White Blood Count 7.9 Red Blood Count 5.33 Hemoglobin 15.5 Hematocrit 46.4 Mean Corpuscular Volume 87.2 Mean Corpuscular Hemoglobin 29.2 Mean Corpuscular Hemoglobin 33.4 Concent Red Cell Distribution Width 16.3 Platelet Count 138 Mean Platelet Volume 11.3 Neutrophils (%) (Auto) 44.0 Lymphocytes (%) (Auto) 41.1 Monocytes (%) (Auto) 12.5 Eosinophils (%) (Auto) 1.9 Basophils (%) (Auto) 0.5 Neutrophils # (Auto) 3.5 Lymphocytes # (Auto) 3.3 Monocytes # (Auto) 1.0 Eosinophils # (Auto) 0.2 Basophils # (Auto) 0.0 CBC Comment DIFF FINAL Differential Comment Prothrombin Time 11.4 Prothromb Time International 1.0 Ratio Activated Partial 26.1 Thromboplast Time Sodium Level 138 Potassium Level 4.2 Chloride Level 106 Carbon Dioxide Level 23.3 Anion Gap 9 Blood Urea Nitrogen 25 Creatinine 1.57 Estimat Glomerular Filtration 40 Rate Random Glucose 97 Calcium Level 9.2 Magnesium Level 2.0 Total Bilirubin 0.5 Aspartate Amino Transf 15 (AST/SGOT) Alanine Aminotransferase 23 (ALT/SGPT) Alkaline Phosphatase 126 Total Creatine Kinase 90 Troponin I 0.02 B-Type Natriuretic Peptide 384 Total Protein 7.9 Albumin 3.3 Urine Color YELLOW Urine Turbidity HAZY Urine pH 5.5 Urine Specific Mittie 1.032 Urine Protein 100 Urine Glucose (UA) NEG Urine Ketones NEG Urine Occult Blood NEG Urine Nitrite NEG Urine Bilirubin NEG Urine Urobilinogen 4.0 Urine Leukocyte Esterase NEG Urine RBC 1 Urine WBC 1 Urine Squamous Epithelial 8 Cells Urine Hyaline Casts 4 Urine Mucus FEW Microscopic Urinalysis Comment CULT NOT INDICATED Result Diagram: 10/27/16 0750 10/27/16 075 Imaging Last Impressions Chest X-Ray 10/27/16751 Signed Impressions: Service Date/Time: Thursday, October 27, 2016 07:57 - CONCLUSION: No acute disease. No significant change has occurred. Keenan Bradley MD Assessment and Plan Assessment and Plan Complete heart block The patient noticed her pulse was slow and was found to be in heart block in the emergency department. Cardiology consultation appreciated. The patient is not interested in pacemaker placement at this time. BNP elevated and she has lower extremity edema. - Monitor on telemetry. - Patient pads at the bedside. - DC nifedipine. - Follow up with cardiology. - Trend troponins and EKGs. - check an echo. Hypertension Well-controlled at this time. - Monitor for now. Renal insufficiency Unsure if acute or chronic. - Trial of IV fluids and monitor. - Avoid nephrotoxic agents. Migraine The patient said she has severe migraines immediately after taking losartan. - d/c losartan. - Pain meds as needed. Thrombocytopenia Not far from baseline. - Continue to monitor. Sinusitis Noted on recent CT. The patient denies any acute symptoms and would rather not be on any extra medications. - Hold off on antibiotics for now. PPx: SCDs Code Status Full Discussed Condition With Pt, nurse Physician Certification 2 Midnight Certification Type: Admission for Inpatient Services Order for Inpatient Services The services are ordered in accordance with Medicare regulations or non- Medicare payer requirements, as applicable. In the case of services not specified as inpatient-only, they are appropriately provided as inpatient services in accordance with the 2-midnight benchmark. Estimated LOS (days): 2 days is the estimated time the patient will need to remain in the hospital, assuming treatment plan goals are met and no additional complications. Post-Hospital Plan: Home Poncho Reyes DO Oct 27, 2016 15:40
--- NOTE | 2016-10-27 18:11 | EKG ---
Date Performed: 10/27/2016 Time Performed: 14:00:18 PTAGE: 61 years EKG: IDIOVENTRICULAR RHYTHM ABNORMAL ECG NO SIGNIFICANT CHANGE FROM PRIOR ELECTROCARDIOGRAM. PREVIOUS TRACING : 10/27/2016 07.55 DOCTOR: Kunal Shah Interpretating Date/Time 10/27/2016 18:09:08
[2016-10-27 20:03] LABS: HDL CHOLESTEROL 38.2 MG/DL (40.0-60.0)
[2016-10-27] MEDS: DOCUSATE SODIUM 50 MG/SENNA 8.6 MG TAB PO SCH (21:00)
[2016-10-27] MEDS: SODIUM CHLORIDE 0.9% FLUSH 10 ML FLUSH IV FLUSH SCH (21:00)
[2016-10-27] MEDS: ATORVASTATIN 10 MG TAB PO SCH (21:00)
[2016-10-28] VITALS (27 sets, daily range): BP systolic 118–155; BP diastolic 56–92; PULSE 32–95; RESP 18–20; TEMP 97.9–98.4; O2SAT 93–99
[2016-10-28] MEDS: ACETAMINOPHEN 325 MG TAB PO PRN (06:14)
--- NOTE | 2016-10-28 07:08 | EKG ---
Date Performed: 10/27/2016 Time Performed: 20:29:00 PTAGE: 61 years EKG: Possible idioventricular rhythm with slow ventricular response Versus junctional rhythm. Ri ght bundle branch block Inferior ST-T changes are nonspecific Abnormal ECG NO PREVIOUS TRACING DOCTOR: Kunal Shah Interpretating Date/Time 10/28/2016 07:08:35
[2016-10-28 07:21] LABS: ANION GAP 10 MEQ/L (5-15); AST (GOT) 21 U/L (15-37); BICARBONATE 22.1 MEQ/L (21.0-32.0); BLOOD UREA NITROGEN 28 MG/DL (7-18); CHLORIDE 108 MEQ/L (98-107); GLOMERULAR FILTRATION RATE 46 ML/MIN (>89); POTASSIUM 4.2 MEQ/L (3.5-5.1); SODIUM (NA) 140 MEQ/L (136-145)
[2016-10-28 07:23] LABS: ALT (GPT) 23 U/L (10-53)
[2016-10-28 07:25] LABS: ALKALINE PHOSPHATASE 114 U/L (45-117); TOTAL BILIRUBIN ADULT 0.4 MG/DL (0.2-1.0)
--- NOTE | 2016-10-28 07:38 | PD.CARD.PN ---
Subjective Subjective Remarks Pt c/o fatigue and shoulder pain Objective Medications Current Medications Medications (Trade) Dose Ordered Sig/Chip Route Start Time Stop Time Status Last Admin (NS 1000 ml Inj) 1,000 ml @ 75 mls/hr [id number] IV 10/27/16 09:20 10/28/16 11:59 10/27/16 09:37 (NS Flush) 2 ml UNSCH PRN IV FLUSH 10/27/16 09:30 (NS Flush) 2 ml BID IV FLUSH 10/27/16 21:00 (Tylenol) 650 mg Q4H PRN PO 10/27/16 09:30 10/28/16 06:14 (Zofran Inj) 4 mg Q6H PRN IVP 10/27/16 09:30 (Tylenol) 650 mg Q6H PRN PO 10/27/16 09:30 (Barbara-Colace) 1 tab BID PO 10/27/16 21:00 (Lipitor) 10 mg HS PO 10/27/16 21:00 (Norvasc) 5 mg DAILY PO 10/28/16 09:00 Vital Signs / I&O Vital Signs Date Time Temp Pulse Resp B/P Pulse Ox O2 Delivery O2 Flow Rate FiO2 10/28/16 06:00 36 10/28/16 05:00 36 10/28/16 04:00 98.0 37 20 132/78 98 10/28/16 04:00 39 10/28/16 03:00 34 10/28/16 02:00 36 10/28/16 01:00 34 10/28/16 00:00 98.0 35 20 131/62 93 10/28/16 00:00 37 10/27/16 23:00 34 10/27/16 22:00 36 10/27/16 21:00 50 10/27/16 20:00 97.9 39 20 122/67 98 10/27/16 20:00 40 10/27/16 19:00 42 10/27/16 18:00 41 10/27/16 17:00 35 10/27/16 16:00 35 10/27/16 15:00 40 10/27/16 15:00 98.1 36 20 137/60 93 10/27/16 13:10 36 18 122/75 95 Room Air 10/27/16 12:30 36 18 124/68 97 Room Air 10/27/16 11:00 38 18 125/78 96 Room Air 10/27/16 09:00 38 139/65 10/27/16 07:56 43 126/77 132/70 10/27/16 07:53 95 Room Air 10/27/16 07:53 95 Room Air I/O 10/27/16 10/27/16 10/27/16 10/28/16 10/28/16 10/28/16 07:00 15:00 23:00 07:00 15:00 23:00 Intake Total 373 ml 780 ml Balance 373 ml 780 ml Intake Oral 240 ml 480 ml IV Total 133 ml 300 ml # Voids 1 2 Physical Exam GENERAL: Well developed, well nourished. No acute distress. HEENT: Jugular venous pressure is normal. CHEST: Lungs clear to auscultation bilaterally. Unlabored respiratory effort. CARDIAC: saeed rate and rhythm without S3, S4, or murmur. ABDOMEN: Soft, nontender, no hepatosplenomegaly. Bowel sounds present. EXTREMITIES: No clubbing, cyanosis, or edema. Laboratory Laboratory Tests Test 10/27/16 10/27/16 10/27/16 10/27/16 07:50 13:15 15:30 18:50 White Blood Count 7.9 TH/MM3 Red Blood Count 5.33 MIL/MM3 Hemoglobin 15.5 GM/DL Hematocrit 46.4 % Mean Corpuscular Volume 87.2 FL Mean Corpuscular Hemoglobin 29.2 PG Mean Corpuscular Hemoglobin 33.4 % Concent Red Cell Distribution Width 16.3 % Platelet Count 138 TH/MM3 Mean Platelet Volume 11.3 FL Neutrophils (%) (Auto) 44.0 % Lymphocytes (%) (Auto) 41.1 % Monocytes (%) (Auto) 12.5 % Eosinophils (%) (Auto) 1.9 % Basophils (%) (Auto) 0.5 % Neutrophils # (Auto) 3.5 TH/MM3 Lymphocytes # (Auto) 3.3 TH/MM3 Monocytes # (Auto) 1.0 TH/MM3 Eosinophils # (Auto) 0.2 TH/MM3 Basophils # (Auto) 0.0 TH/MM3 CBC Comment DIFF FINAL Differential Comment Prothrombin Time 11.4 SEC Prothromb Time International 1.0 RATIO Ratio Activated Partial 26.1 SEC Thromboplast Time Sodium Level 138 MEQ/L Potassium Level 4.2 MEQ/L Chloride Level 106 MEQ/L Carbon Dioxide Level 23.3 MEQ/L Anion Gap 9 MEQ/L Blood Urea Nitrogen 25 MG/DL Creatinine 1.57 MG/DL Estimat Glomerular Filtration 40 ML/MIN Rate Random Glucose 97 MG/DL Calcium Level 9.2 MG/DL Magnesium Level 2.0 MG/DL Total Bilirubin 0.5 MG/DL Aspartate Amino Transf 15 U/L (AST/SGOT) Alanine Aminotransferase 23 U/L (ALT/SGPT) Alkaline Phosphatase 126 U/L Total Creatine Kinase 90 U/L Troponin I 0.02 NG/ML LESS THAN 0.02 0.02 NG/ML NG/ML B-Type Natriuretic Peptide 384 PG/ML Total Protein 7.9 GM/DL Albumin 3.3 GM/DL Urine Color YELLOW Urine Turbidity HAZY Urine pH 5.5 Urine Specific [place] 1.032 Urine Protein 100 mg/dL Urine Glucose (UA) NEG mg/dL Urine Ketones NEG mg/dL Urine Occult Blood NEG Urine Nitrite NEG Urine Bilirubin NEG Urine Urobilinogen 4.0 MG/DL Urine Leukocyte Esterase NEG Urine RBC 1 /hpf Urine WBC 1 /hpf Urine Squamous Epithelial 8 /hpf Cells Urine Hyaline Casts 4 /lpf Urine Mucus FEW /lpf Microscopic Urinalysis Comment CULT NOT INDICATED Triglycerides Level 91 MG/DL Cholesterol Level 129 MG/DL LDL Cholesterol 73 MG/DL HDL Cholesterol 38.2 MG/DL Cholesterol/HDL Ratio 3.37 RATIO Test 10/28/16 06:05 Sodium Level 140 MEQ/L Potassium Level 4.2 MEQ/L Chloride Level 108 MEQ/L Carbon Dioxide Level 22.1 MEQ/L Anion Gap 10 MEQ/L Blood Urea Nitrogen 28 MG/DL Creatinine 1.41 MG/DL Estimat Glomerular Filtration 46 ML/MIN Rate Random Glucose 94 MG/DL Calcium Level 8.4 MG/DL Total Bilirubin 0.4 MG/DL Aspartate Amino Transf 21 U/L (AST/SGOT) Alanine Aminotransferase 23 U/L (ALT/SGPT) Alkaline Phosphatase 114 U/L Total Protein 7.3 GM/DL Albumin 3.0 GM/DL Imaging Last 72 hours Impressions Chest X-Ray 10/27/16 0752 Signed Impressions: Service Date/Time: Thursday, October 27, 2016 07:57 - CONCLUSION: No acute disease. No significant change has occurred. Keenan Bradley MD Assessment and Plan Assessment and Plan Complete heart block. The patient does have a heart rate around 40. She does dip down to around 36, but is amazingly completely asymptomatic. Thus at this point, I would not actively pace her. I did debate whether to start her on Isuprel. For both of these issues so asymptomatic, I would not start them. The pace is at the bedside. The Nifedical will be stopped as there is a small AV letha blocking property to this. The Nifedical will be stopped as there is a small AV letha blocking properties to this. I am also concerned that it may have been in part exacerbated by the nausea and a vagal response. In any case, she will be observed closely for this. I did discuss the possibility of a permanent pacemaker with her. She is adamantly opposed to that at this time. As well with possible sinusitis/UTI, this would be suboptimal timing. Thus at this point, we will continue with medical management and consider pacer as appropriate in several days. 10/28- No change except fatigue- still CHB. PT gets upset at mention of PPM - will take at least 3 days for meds to wear off Hypertension - stable Headaches - This will be managed by the primary team. Sinus infection - This will also be managed by the primary team. Fanny Bishop MD Oct 28, 2016 07:38
[2016-10-28] MEDS: DOCUSATE SODIUM 50 MG/SENNA 8.6 MG TAB PO SCH ×2 (09:00→21:00)
[2016-10-28] MEDS: SODIUM CHLORIDE 0.9% FLUSH 10 ML FLUSH IV FLUSH SCH ×2 (09:00→21:00)
[2016-10-28] MEDS ORDERED: amLODIPine BESYLATE 5 MG TAB PO SCH (09:00)
--- NOTE | 2016-10-28 10:08 | ECHRPT ---
Indication: Hypertensive heart disease without heart failure CONCLUSIONS Normal left ventricular size. Severe concentric left ventricular hypertrophy. The left ventricular systolic function is normal wit h an estimated ejection fraction in the range of 60-65%. No regional wall motion abnormalities are present. The left atrial size is mildly dilated. Mild thickening of the mitral valve leaflets. Mild mitral valve regurgitation. There is mild to moderate tricuspid valve regurgitation. There is estimated moderate pulmonary hypertension present. BP: 137 / 60 HR: 36 Rhythm: Other MEASUREMENTS (Male / Female) Normal Values Technical Quality:Fair 2D ECHO LV Diastolic Diameter PLAX 3.1 cm 4.2 - 5.9 / 3.9 - 5.3 cm LV Systolic Diameter PLAX 2.2 cm IVS Diastolic Thickness 1.7 cm 0.6 - 1.0 / 0.6 - 0.9 cm LVPW Diastolic Thickness 1.7 cm 0.6 - 1.0 / 0.6 - 0.9 cm LV Relative Wall Thickness 1.1 LVOT Diameter 1.9 cm Aortic Root Diameter 3.1 cm LA Systolic Diameter LX 4.4 cm 3.0 - 4.0 / 2.7 - 3.8 cm M-MODE AV Cusp Separation MM 2.3 cm DOPPLER AV Peak Velocity 153.0 cm/s AV Peak Gradient 9.4 mmHg AV Mean Gradient 5.0 mmHg AV Velocity Time Integral 27.8 cm LVOT Peak Velocity 145.0 cm/s LVOT Peak Gradient 8.4 mmHg LVOT Velocity Time Integral 25.0 cm LVOT Cardiac Index 997.4 cm/minm AV Area Cont Eq vti 2.5 cm AV Area Cont Eq pk 2.7 cm Mitral E Point Velocity 94.8 cm/s TR Peak Velocity 366.0 cm/s TR Peak Gradient 53.6 mmHg PV Peak Velocity 82.0 cm/s PV Peak Gradient 2.7 mmHg FINDINGS LEFT VENTRICLE Normal left ventricular size. Severe concentric left ventricular hypertrophy. The left ventricular systolic function is normal wit h an estimated ejection fraction in the range of 60-65%. No regional wall motion abnormalities are present. This study was not technically sufficient to allow for evaluation of left ventricular diastolic func tion. RIGHT VENTRICLE The right ventricular size is normal. LEFT ATRIUM The left atrial size is [id number] dilated. RIGHT ATRIUM The right atrial size is upper limits of normal. ATRIAL SEPTUM The interatrial septum not well visualized. AORTA The aortic root and proximal ascending aorta are normal in size on limited imaging. MITRAL VALVE Structurally normal mitral valve. No mitral valve stenosis. Mild thickening of the mitral valve leaf lets. Mild mitral valve regurgitation. AORTIC VALVE Trileaflet aortic valve. No aortic valve stenosis or regurgitation. TRICUSPID VALVE Structurally normal tricuspid valve. There is mild to moderate tricuspid valve regurgitation. There is estimated [id number] pulmonary hypertension present (range 60-70 mmHg). PULMONARY VALVE Trivial pulmonary valve regurgitation. VESSELS The inferior vena cava is normal in size. The inferior vena cava was not well visualized. PERICARDIUM No pericardial effusion. [place] MD, FACC (Electronically Signed) Final Date:28 October 2016 10:08
--- NOTE | 2016-10-28 16:59 | HHI.PR ---
Subjective Remarks The patient said that she looked online and reviewed pacemaker placement and she said she now would proceed with that if we recommended it. She has no acute complaints. She denies any palpitations. Objective Vitals Vital Signs Date Time Temp Pulse Resp B/P Pulse Ox O2 Delivery O2 Flow Rate FiO2 10/28/16 15:10 97.9 34 18 118/56 99 10/28/16 15:01 34 10/28/16 14:01 38 10/28/16 13:00 34 10/28/16 12:01 36 10/28/16 11:30 98.4 36 18 125/75 96 10/28/16 11:00 38 10/28/16 10:00 34 10/28/16 09:37 98 21 10/28/16 09:00 34 10/28/16 08:45 98.4 41 18 155/92 98 10/28/16 08:00 32 10/28/16 07:01 38 10/28/16 06:00 36 10/28/16 05:00 36 10/28/16 04:00 98.0 37 20 132/78 98 10/28/16 04:00 39 10/28/16 03:00 34 10/28/16 02:00 36 10/28/16 01:00 34 10/28/16 00:00 98.0 35 20 131/62 93 10/28/16 00:00 37 10/27/16 23:00 34 10/27/16 22:00 36 10/27/16 21:00 50 10/27/16 20:00 97.9 39 20 122/67 98 10/27/16 20:00 40 10/27/16 19:00 42 10/27/16 18:00 41 10/27/16 17:00 35 I/O 10/27/16 10/27/16 10/27/16 10/28/16 10/28/16 10/28/16 07:00 15:00 23:00 07:00 15:00 23:00 Intake Total 373 ml 780 ml Balance 373 ml 780 ml Intake Oral 240 ml 480 ml IV Total 133 ml 300 ml # Voids 1 2 Result Diagram: 10/27/16 0750 10/28/16 0605 Imaging Last Impressions Chest X-Ray 10/27/16 075 Signed Impressions: Service Date/Time: Thursday, October 27, 2016 07:57 - CONCLUSION: No acute disease. No significant change has occurred. Keenan Bradley MD Objective Remarks GENERAL: This is a well-nourished, well-developed patient, in no apparent distress. SKIN: No rashes, ecchymoses or lesions. Cool and dry. HEAD: Atraumatic. Normocephalic. No temporal or scalp tenderness. EYES: Pupils equal round and reactive. Extraocular motions intact. No scleral icterus. No injection or drainage. ENT: Nose without bleeding, purulent drainage or septal hematoma. Throat without erythema, tonsillar hypertrophy or exudate. Uvula midline. Airway patent. NECK: Trachea midline. No JVD or lymphadenopathy. Supple, nontender, no meningeal signs. CARDIOVASCULAR: Bradycardic without murmurs, gallops, or rubs. RESPIRATORY: Clear to auscultation. Breath sounds equal bilaterally. No wheezes , rales, or rhonchi. GASTROINTESTINAL: Abdomen soft, non-tender, nondistended. No hepato-splenomegaly , or palpable masses. No guarding. MUSCULOSKELETAL: Extremities without clubbing, cyanosis. Trace edema. NEUROLOGICAL: Awake and alert. Cranial nerves II through XII intact. Motor and sensory grossly within normal limits. Five out of 5 muscle strength in all muscle groups. Normal speech. PSYCH: Slightly flattened affect. Medications and IVs Current Medications Medications (Trade) Dose Ordered Sig/Chip Route Start Time Stop Time Status Last Admin (NS Flush) 2 ml UNSCH PRN IV FLUSH 10/27/16 09:30 (NS Flush) 2 ml BID IV FLUSH 10/27/16 21:00 (Tylenol) 650 mg Q4H PRN PO 10/27/16 09:30 10/28/16 06:14 (Zofran Inj) 4 mg Q6H PRN IVP 10/27/16 09:30 (Tylenol) 650 mg Q6H PRN PO 10/27/16 09:30 (Barbara-Colace) 1 tab BID PO 10/27/16 21:00 (Lipitor) 10 mg HS PO 10/27/16 21:00 (Norvasc) 5 mg DAILY PO 10/28/16 09:00 A/P Assessment and Plan Complete heart block The patient noticed her pulse was slow and was found to be in heart block in the emergency department. BNP elevated and she has lower extremity edema. Echo with normal ejection fraction. The patient is now agreeable to proceeding with pacemaker placement. - Monitor on telemetry. - Pacer pads at the bedside. - DC nifedipine. - Follow up with cardiology in regards to pacemaker placement as patient is now agreeable. Hypertension Well-controlled at this time. - Monitor for now. Renal insufficiency Unsure if acute or chronic. - Trial of IV fluids and monitor. - Avoid nephrotoxic agents. Migraine The patient said she has severe migraines immediately after taking losartan. - d/c losartan. - Pain meds as needed. Thrombocytopenia Not far from baseline. - Continue to monitor. Sinusitis Noted on recent CT. The patient denies any acute symptoms and would rather not be on any extra medications. - Hold off on antibiotics for now. PPx: SCDs Discharge Planning Awaiting further cardiology evaluation Poncho Reyes DO Oct 28, 2016 16:59
[2016-10-28] MEDS ORDERED: SODIUM CHLOR 0.45% 1000 ML INJ 1,000 ML IV SCH (17:00)
[2016-10-28] MEDS: ATORVASTATIN 10 MG TAB PO SCH (21:00)
[2016-10-29] VITALS (28 sets, daily range): BP systolic 151–174; BP diastolic 76–92; PULSE 32–72; RESP 18; TEMP 97.6–98.5; O2SAT 94–99
[2016-10-29] MEDS: ACETAMINOPHEN 325 MG TAB PO PRN ×2 (05:10→09:47)
[2016-10-29] MEDS: DOCUSATE SODIUM 50 MG/SENNA 8.6 MG TAB PO SCH ×3 (06:31→21:00)
--- NOTE | 2016-10-29 08:24 | PD.CARD.PN ---
Subjective Subjective Remarks No change- fatigue Objective Medications Current Medications Medications (Trade) Dose Ordered Sig/Chip Route Start Time Stop Time Status Last Admin (NS Flush) 2 ml UNSCH PRN IV FLUSH 10/27/16 09:30 (NS Flush) 2 ml BID IV FLUSH 10/27/16 21:00 10/28/16 21:00 (Tylenol) 650 mg Q4H PRN PO 10/27/16 09:30 10/29/16 05:10 (Zofran Inj) 4 mg Q6H PRN IVP 10/27/16 09:30 (Tylenol) 650 mg Q6H PRN PO 10/27/16 09:30 (Barbara-Colace) 1 tab BID PO 10/27/16 21:00 10/29/16 06:31 (Lipitor) 10 mg HS PO 10/27/16 21:00 Vital Signs / I&O Vital Signs Date Time Temp Pulse Resp B/P Pulse Ox O2 Delivery O2 Flow Rate FiO2 10/29/16 08:16 98 21 10/29/16 06:00 32 10/29/16 05:00 38 10/29/16 04:00 34 10/29/16 04:00 34 18 168/88 99 10/29/16 03:00 36 10/29/16 02:00 34 10/29/16 01:00 36 10/29/16 00:00 35 10/29/16 00:00 35 18 151/90 96 10/28/16 23:00 36 10/28/16 22:00 36 10/28/16 20:00 37 10/28/16 20:00 98.0 37 18 122/66 99 10/28/16 19:00 38 10/28/16 18:01 36 10/28/16 17:00 34 10/28/16 16:00 36 10/28/16 15:10 97.9 34 18 118/56 99 10/28/16 15:01 34 10/28/16 14:01 38 10/28/16 13:00 34 10/28/16 12:01 36 10/28/16 11:30 98.4 36 18 125/75 96 10/28/16 11:00 38 10/28/16 10:00 34 10/28/16 09:37 98 21 10/28/16 09:00 34 10/28/16 08:45 98.4 41 18 155/92 98 I/O 10/28/16 10/28/16 10/28/16 10/29/16 10/29/16 10/29/16 07:00 15:00 23:00 07:00 15:00 23:00 Intake Total 780 ml 720 ml 240 ml Output Total 300 ml 350 ml Balance 780 ml 420 ml -110 ml Intake Oral 480 ml 720 ml 240 ml IV Total 300 ml Output Urine Total 300 ml 350 ml # Voids 2 2 1 # Bowel Movements 0 Physical Exam GENERAL: Well developed, well nourished. No acute distress. HEENT: Jugular venous pressure is normal. CHEST: Lungs clear to auscultation bilaterally. Unlabored respiratory effort. CARDIAC: saeed rate and rhythm without S3, S4, or murmur. ABDOMEN: Soft, nontender, no hepatosplenomegaly. Bowel sounds present. EXTREMITIES: No clubbing, cyanosis, or edema. Assessment and Plan Assessment and Plan Complete heart block- stable, minimal symptoms of fatigue 10/28- No change except fatigue- still CHB. PT gets upset at mention of PPM 10/29- still CHB, pt had only 2 doses of nifedical - she is agreeable to EP consult for PPM discussion ---recently on antibiotics Hypertension - stable Headaches - This will be managed by the primary team. Sinusitis- off antibiotics Fanny Bishop MD Oct 29, 2016 08:24
[2016-10-29] MEDS: SODIUM CHLORIDE 0.9% FLUSH 10 ML FLUSH IV FLUSH SCH ×2 (09:00→21:00)
--- NOTE | 2016-10-29 09:26 | HHI.PR ---
Subjective Remarks The patient's family was at the bedside. They had many questions about the pacemaker placement. They wanted to know if there were any alternatives. They wanted to know the pros and cons. The patient said she was feeling well this morning. She said she felt her pulse was more regular. Objective Vitals Vital Signs Date Time Temp Pulse Resp B/P Pulse Ox O2 Delivery O2 Flow Rate FiO2 10/29/16 08:16 98 21 10/29/16 06:00 32 10/29/16 05:00 38 10/29/16 04:00 34 10/29/16 04:00 34 18 168/88 99 10/29/16 03:00 36 10/29/16 02:00 34 10/29/16 01:00 36 10/29/16 00:00 35 10/29/16 00:00 35 18 151/90 96 10/28/16 23:00 36 10/28/16 22:00 36 10/28/16 20:00 37 10/28/16 20:00 98.0 37 18 122/66 99 10/28/16 19:00 38 10/28/16 18:01 36 10/28/16 17:00 34 10/28/16 16:00 36 10/28/16 15:10 97.9 34 18 118/56 99 10/28/16 15:01 34 10/28/16 14:01 38 10/28/16 13:00 34 10/28/16 12:01 36 10/28/16 11:30 98.4 36 18 125/75 96 10/28/16 11:00 38 10/28/16 10:00 34 10/28/16 09:37 98 21 I/O 10/28/16 10/28/16 10/28/16 10/29/16 10/29/16 10/29/16 06:59 14:59 22:59 06:59 14:59 22:59 Intake Total 780 ml 720 ml 240 ml Output Total 300 ml 350 ml Balance 780 ml 420 ml -110 ml Intake Oral 480 ml 720 ml 240 ml IV Total 300 ml Output Urine Total 300 ml 350 ml # Voids 2 2 1 # Bowel Movements 0 Result Diagram: 10/27/16 0750 10/28/16 06 Imaging Last Impressions Chest X-Ray 10/27/16751 Signed Impressions: Service Date/Time: Thursday, October 27, 2016 07:57 - CONCLUSION: No acute disease. No significant change has occurred. Keenan Bradley MD Objective Remarks GENERAL: This is a well-nourished, well-developed patient, in no apparent distress. SKIN: No rashes, ecchymoses or lesions. Cool and dry. HEAD: Atraumatic. Normocephalic. No temporal or scalp tenderness. EYES: Pupils equal round and reactive. Extraocular motions intact. No scleral icterus. No injection or drainage. ENT: Nose without bleeding, purulent drainage or septal hematoma. Throat without erythema, tonsillar hypertrophy or exudate. Uvula midline. Airway patent. NECK: Trachea midline. No JVD or lymphadenopathy. Supple, nontender, no meningeal signs. CARDIOVASCULAR: Bradycardic without murmurs, gallops, or rubs. RESPIRATORY: Clear to auscultation. Breath sounds equal bilaterally. No wheezes , rales, or rhonchi. GASTROINTESTINAL: Abdomen soft, non-tender, nondistended. No hepato-splenomegaly , or palpable masses. No guarding. MUSCULOSKELETAL: Extremities without clubbing, cyanosis. Trace edema. NEUROLOGICAL: Awake and alert. Cranial nerves II through XII intact. Motor and sensory grossly within normal limits. Five out of 5 muscle strength in all muscle groups. Normal speech. PSYCH: Slightly anxious. Medications and IVs Current Medications Medications (Trade) Dose Ordered Sig/Chip Route Start Time Stop Time Status Last Admin (NS Flush) 2 ml UNSCH PRN IV FLUSH 10/27/16 09:30 (NS Flush) 2 ml BID IV FLUSH 10/27/16 21:00 10/28/16 21:00 (Tylenol) 650 mg Q4H PRN PO 10/27/16 09:30 10/29/16 05:10 (Zofran Inj) 4 mg Q6H PRN IVP 10/27/16 09:30 (Tylenol) 650 mg Q6H PRN PO 10/27/16 09:30 (Barbara-Colace) 1 tab BID PO 10/27/16 21:00 10/29/16 06:31 (Lipitor) 10 mg HS PO 10/27/16 21:00 A/P Assessment and Plan Complete heart block The patient noticed her pulse was slow and was found to be in heart block in the emergency department. BNP elevated and she has lower extremity edema. Echo with normal ejection fraction. The patient is now interested in pacemaker placement. - Monitor on telemetry. - Pacer pads at the bedside. - DC nifedipine. - Follow up with cardiology in regards to pacemaker placement as patient is now agreeable. EP physician has been consulted. Hypertension Elevated at this time, however, the patient does not want any medication. - Monitor for now. Renal insufficiency Unsure if acute or chronic. - Trial of IV fluids and monitor. - Avoid nephrotoxic agents. Migraine The patient said she has severe migraines immediately after taking losartan. - d/c losartan. - Pain meds as needed. Thrombocytopenia Not far from baseline. - Continue to monitor. Sinusitis Noted on recent CT. The patient denies any acute symptoms and would rather not be on any extra medications. - Hold off on antibiotics for now. PPx: SCDs Discharge Planning Awaiting EP consult Poncho Reyes DO Oct 29, 2016 09:26
[2016-10-29 12:35] LABS: HEMATOCRIT 48.6 % (35.0-46.0); MEAN CELL VOLUME 88.3 FL (80.0-100.0); MEAN CORPUSCULAR HEMOGLOBIN 28.6 PG (27.0-34.0); MEAN CORPUSCULAR HGB CONC 32.3 % (32.0-36.0); PLATELET COUNT 103 TH/MM3 (150-450); RED CELL DISTRIBUTION WIDTH 16.2 % (11.6-17.2); REVIEW FLAG FINAL; WHITE BLOOD COUNT 8.5 TH/MM3 (4.0-11.0)
[2016-10-29 12:57] LABS: BICARBONATE 23.2 MEQ/L (21.0-32.0); MAGNESIUM 2.1 MG/DL (1.5-2.5); POTASSIUM 3.9 MEQ/L (3.5-5.1)
[2016-10-29] MEDS: ATORVASTATIN 10 MG TAB PO SCH (21:00)
[2016-10-30] VITALS (14 sets, daily range): BP systolic 141–169; BP diastolic 80–99; PULSE 47–67; RESP 18; TEMP 97.7–98.4; O2SAT 92–98
--- NOTE | 2016-10-30 06:43 | MB ---
cc: RILEY VALDEZ M.D. DATE OF CONSULTATION 10/29/2016 REASON FOR CONSULTATION Severe asymptomatic bradycardia for permanent pacemaker insertion. Mrs. Verma is a 61-year-old -[place] female with a history of high blood pressure, obesity, hyperlipidemia, previous pneumonia who was admitted to the emergency room due to headache and shortness of breath. She was found with a rate of around 40 beats per minute. The patient was only on Nifedical and Augmentin. Previously evaluated Dr. Bishop. I was consulted for evaluation for possible pacemaker insertion. The chart was reviewed. The patient was evaluated. ALLERGIES MORPHINE AND SHELLFISH SOCIAL HISTORY Negative for smoking and drinking. FAMILY HISTORY Noncontributory to her current medical condition. MEDICATIONS AT HOME The patient was on: 1. Procardia 2. Atorvastatin Currently in the hospital she is on also on Zofran. REVIEW OF SYSTEMS She refers currently no chest pain or chest discomfort. No fever. PHYSICAL EXAM Alert, fully oriented. VITAL SIGNS: Blood pressure 167/76, pulse around 62-70, respiratory 18. LUNGS: Ventilated. CARDIOVASCULAR: S1, S2 regular. ABDOMEN: Soft, no mass. No bruits. EXTREMITIES: No edema. Electrocardiogram on admission indicated a junctional rhythm at a rate of around 35-38 beats per minute. Subsequent electrocardiogram shows sinus rhythm, right bundle-branch block, diffuse ST changes. LABORATORY DATA Hemoglobin is 15.7, white blood cell 8.5, potassium 3.9, creatinine 1.19. ASSESSMENT AND RECOMMENDATIONS I had a long conversation with Mrs. Verma. Since the moment I closed the door, she told me she knew I was coming and she has no intention as having a pacemaker. She understood the lord will make a decision about if she lives or not. Apparently she is not even taking her blood pressure medication. She wants to go home tomorrow morning if she is okay. I had a long conversation with her. I tried to explain why she needed a pacemaker and she was on no negative chronotropic medication. The heart rate can drop. She can have a head trauma and hip fracture and even . The patient at this point refused to understand any rationality about the need for pacemaker. At this point, I am signed off the case. Further management by Dr. Bishop. MD SHIRLEY Pierce/DJL /8:50 PM /6:37 AM
--- NOTE | 2016-10-30 08:07 | PD.CARD.PN ---
Subjective Subjective Remarks I Feel Fine Objective Medications Current Medications Medications (Trade) Dose Ordered Sig/Chip Route Start Time Stop Time Status Last Admin (NS Flush) 2 ml UNSCH PRN IV FLUSH 10/27/16 09:30 (NS Flush) 2 ml BID IV FLUSH 10/27/16 21:00 10/29/16 21:00 (Tylenol) 650 mg Q4H PRN PO 10/27/16 09:30 10/29/16 09:47 (Zofran Inj) 4 mg Q6H PRN IVP 10/27/16 09:30 (Tylenol) 650 mg Q6H PRN PO 10/27/16 09:30 (Barbara-Colace) 1 tab BID PO 10/27/16 21:00 10/29/16 06:31 (Lipitor) 10 mg HS PO 10/27/16 21:00 Vital Signs / I&O Vital Signs Date Time Temp Pulse Resp B/P Pulse Ox O2 Delivery O2 Flow Rate FiO2 10/30/16 04:00 66 10/30/16 03:00 62 10/30/16 02:00 58 10/30/16 01:00 58 10/30/16 00:50 98.4 47 18 169/99 96 10/30/16 00:00 52 10/29/16 23:00 62 10/29/16 22:00 62 10/29/16 21:00 60 10/29/16 20:00 98.5 64 18 174/88 97 10/29/16 20:00 60 10/29/16 19:00 68 10/29/16 18:01 61 10/29/16 17:01 62 10/29/16 16:00 60 10/29/16 15:15 98.3 56 18 167/76 94 10/29/16 15:00 58 10/29/16 14:00 64 10/29/16 13:00 72 10/29/16 12:01 56 10/29/16 11:15 98.4 61 18 163/92 98 10/29/16 11:00 62 10/29/16 10:00 64 10/29/16 09:00 58 10/29/16 08:45 97.6 37 18 151/88 98 10/29/16 08:16 98 21 I/O 6/15/17 6/10/29/16 10/30/16 10/30/16 10/30/16 07:00 15:00 23:00 07:00 15:00 23:00 Intake Total 240 ml 720 ml Output Total 350 ml 1450 ml Balance -110 ml -730 ml Intake Oral 240 ml 720 ml Output Urine Total 350 ml 1450 ml # Voids 1 6 # Bowel Movements 0 Physical Exam GENERAL: Well developed, well nourished. No acute distress. HEENT: Jugular venous pressure is normal. CHEST: Lungs clear to auscultation bilaterally. Unlabored respiratory effort. CARDIAC: wally rate and rhythm without S3, S4, or murmur. ABDOMEN: Soft, nontender, no hepatosplenomegaly. Bowel sounds present. EXTREMITIES: No clubbing, cyanosis, or edema. Laboratory Laboratory Tests Test 10/29/16 12:08 White Blood Count 8.5 TH/MM3 Red Blood Count 5.50 MIL/MM3 Hemoglobin 15.7 GM/DL Hematocrit 48.6 % Mean Corpuscular Volume 88.3 FL Mean Corpuscular Hemoglobin 28.6 PG Mean Corpuscular Hemoglobin 32.3 % Concent Red Cell Distribution Width 16.2 % Platelet Count 103 TH/MM3 Mean Platelet Volume 11.5 FL Sodium Level 138 MEQ/L Potassium Level 3.9 MEQ/L Chloride Level 103 MEQ/L Carbon Dioxide Level 23.2 MEQ/L Anion Gap 12 MEQ/L Blood Urea Nitrogen 22 MG/DL Creatinine 1.19 MG/DL Estimat Glomerular Filtration 55 ML/MIN Rate Random Glucose 79 MG/DL Calcium Level 9.3 MG/DL Magnesium Level 2.1 MG/DL Assessment and Plan Assessment and Plan Complete heart block- stable, minimal symptoms of fatigue 10/30 Sinus Wally- apparently nifedipine caused her CHB Hypertension - losartan = WILLS, nifedical = CHB => trial on lisinopril 10 a day Headaches - This will be managed by the primary team. Dispo- ok for d/c Fanny Bishop MD Oct 30, 2016 08:07
[2016-10-30] MEDS ORDERED: LISI10TA3 PO (08:53)
--- NOTE | 2016-10-30 08:54 | HHI.DCPOC ---
Discharge Care Plan Diagnosis: (1) Right maxillary sinusitis (2) Chronic hypertension (3) Symptomatic bradycardia Goals to Promote Your Health * To prevent worsening of your condition and complications * To maintain your health at the optimal level Directions to Meet Your Goals Take your medications as prescribed Follow your dietary instruction Follow activity as directed Keep your appointments as scheduled Take your immunizations and boosters as scheduled If your symptoms worsen call your PCP, if no PCP go to Urgent Care Center or Emergency Room Smoking is Dangerous to Your Health. Avoid second hand smoke Call the 24-hour hour crisis hotline for domestic abuse at Poncho Reyes DO Oct 30, 2016 08:54
[2016-10-30] MEDS ORDERED: LISINOPRIL 10 MG TAB PO SCH (09:00)
[2016-10-30] MEDS: SODIUM CHLORIDE 0.9% FLUSH 10 ML FLUSH IV FLUSH SCH (09:00)
[2016-10-30] MEDS: DOCUSATE SODIUM 50 MG/SENNA 8.6 MG TAB PO SCH (09:00)
--- NOTE | 2016-10-30 09:00 | HHI.DS ---
Discharge Summary Admission Date Oct 27, 2016 at 09:21 Discharge Date: Oct 30, 2016 Admitting Diagnosis symptomatic bradycardia/chest pain (1) Symptomatic bradycardia ICD Code: R00.1 Diagnosis: Principal (2) Chronic hypertension ICD Code: I10 (3) Right maxillary sinusitis ICD Code: J32.0 Procedures None Brief History - From Admission The patient is a 61-year-old female with a past medical history of hypertension who is presenting to the hospital with a slow heart rate and headache. The patient came to the hospital on the because of a severe headache. She was found to be hypertensive and also had sinusitis. She was discharged on nifedipine and Augmentin. The patient continued to have headaches. She describes the headache as like a migraine. It is a severe headache at the top of her head and radiates down the back of the right side of her head and down her neck. She says she has been getting these severe headaches ever since she was started on a blood pressure medication on October 15. During the patient's episode of headache she wanted to feel her pulse to see if everything was all right. She said she had a hard time feeling of irregular heartbeat so she came to the hospital. The patient says her headache is gone. She said she did talk with the venture capital analyst earlier and has no interest in having a pacemaker placed. She mentions that medications seem to hurt her body and does not like to take them if she does not absolutely need them. She says vitamin D hurts the bones of her legs. CBC/BMP: 10/29/16 1208 10/29/16 1208 Significant Findings Laboratory Tests Test 10/27/16 10/27/16 10/27/16 10/28/16 13:15 15:30 18:50 06:05 Urine Turbidity HAZY (CLEAR) Urine Protein 100 mg/dL (NEG-TRACE) Urine Urobilinogen 4.0 MG/DL (LESS THAN 2.0) Urine Mucus FEW /lpf (OCC) Troponin I LESS THAN 0.02 NG/ML (0.02-0.05) HDL Cholesterol 38.2 MG/DL (40.0-60.0) Chloride Level 108 MEQ/L (98-107) Blood Urea Nitrogen 28 MG/DL (7-18) Creatinine 1.41 MG/DL (0.50-1.00) Estimat Glomerular Filtration 46 ML/MIN (>89) Rate Calcium Level 8.4 MG/DL (8.5-10.1) Albumin 3.0 GM/DL (3.4-5.0) Test 10/29/16 12:08 Red Blood Count 5.50 MIL/MM3 (4.00-5.30) Hemoglobin 15.7 GM/DL (11.6-15.3) Hematocrit 48.6 % (35.0-46.0) Platelet Count 103 TH/MM3 (150-450) Mean Platelet Volume 11.5 FL (7.0-11.0) Blood Urea Nitrogen 22 MG/DL (7-18) Creatinine 1.19 MG/DL (0.50-1.00) Estimat Glomerular Filtration 55 ML/MIN (>89) Rate Imaging Last Impressions Chest X-Ray 10/27/16 0752 Signed Impressions: Service Date/Time: Thursday, October 27, 2016 07:57 - CONCLUSION: No acute disease. No significant change has occurred. Keenan Bradley MD PE at Discharge GENERAL: This is a well-nourished, well-developed patient, in no apparent distress. SKIN: No rashes, ecchymoses or lesions. Cool and dry. HEAD: Atraumatic. Normocephalic. No temporal or scalp tenderness. EYES: Pupils equal round and reactive. Extraocular motions intact. No scleral icterus. No injection or drainage. ENT: Nose without bleeding, purulent drainage or septal hematoma. Throat without erythema, tonsillar hypertrophy or exudate. Uvula midline. Airway patent. NECK: Trachea midline. No JVD or lymphadenopathy. Supple, nontender, no meningeal signs. CARDIOVASCULAR: Regular rate and rhythm without murmurs, gallops, or rubs. RESPIRATORY: Clear to auscultation. Breath sounds equal bilaterally. No wheezes , rales, or rhonchi. GASTROINTESTINAL: Abdomen soft, non-tender, nondistended. No hepato-splenomegaly , or palpable masses. No guarding. MUSCULOSKELETAL: Extremities without clubbing, cyanosis. Trace edema. NEUROLOGICAL: Awake and alert. Cranial nerves II through XII intact. Motor and sensory grossly within normal limits. Five out of 5 muscle strength in all muscle groups. Normal speech. PSYCH: Mood and affect appropriate. Pt update on day of discharge The patient said she was feeling fine. She wanted to go home. She said she told the venture capital analyst yesterday that she didn't want a pacemaker placed. Discussed with nursing. Hospital Course Complete heart block The patient noticed her pulse was slow and was found to be in heart block in the emergency department. BNP elevated and she had lower extremity edema. Echo with normal ejection fraction. She was monitored on telemetry and EKGs were followed. Pacer pads were placed at the bedside. Nifedipine was discontinued. EP was consulted and the pt refused pacemaker placement. The pt's heart rhythm returned to normal sinus rhythm. She will follow up with cardiology as an outpt. Hypertension The pt cited adverse reactions to several medications. She will be discharged on a trial of lisinopril 10 mg daily. Renal insufficiency Improved with IVFs. Sinusitis Noted on recent CT. The patient denies any acute symptoms and would rather not be on any extra medications. She will follow up with her PCP. Pt Condition on Discharge: Stable Discharge Disposition: Discharge Home Discharge Time: <= 30 minutes Discharge Instructions DIET: Follow Instructions for: Heart Healthy Diet Activities you can perform: Weight Bearing as Carlos Follow up Referrals: Cardiology - [address] Bishop PCP Follow-up - 1 Week New Medications: Lisinopril (Lisinopril) 10 Mg Tab 10 MG PO DAILY Blood Pressure Management #30 TAB Continued Medications: Atorvastatin (Atorvastatin) 10 Mg Tab 10 MG PO HS Cholesterol Management #30 Ref 0 TAB Ergocalciferol (Ergocalciferol) 50,000 Unit Cap 38562 UNITS PO Q7D Nutritional Supplement #30 Ref 0 CAP ([Amox Tr-K]) 825 TAB BID Discontinued Medications: Losartan (Losartan) 25 Mg Tab 25 MG PO DAILY Blood Pressure Management #30 Ref 0 TAB Nifedipine ER 24 HR (Procardia XL) 30 Mg Tab 30 MG PO DAILY #30 Ref 0 TAB Poncho Reyes DO Oct 30, 2016 09:00
--- NOTE | 2016-10-31 13:38 | EKG ---
Date Performed: 10/30/2016 Time Performed: 07:54:22 PTAGE: 61 years EKG: Sinus bradycardia Short TX interval Possible left atrial abnormality Right bundle branch bl ock Inferior/lateral T wave changes are nonspecific Abnormal ECG PREVIOUS TRACING : 10/27/2016 20.29 COMPARED TO THE PREVIOUS EKG JUNCTIONAL RHYTHM IS NO LONGE R PRESENT DOCTOR: Isma Ocampo Interpretating Date/Time 10/31/2016 13:36:59
== END 2016-10-30 12:45 | disposition home or self-care (01) | DRG 309 ==
LOC: NEPC 07:15 → NEDA 09:21 → HCIS 14:15
PROVIDERS: ADMIT Hospitalist; ATTEND Hospitalist
DX: I44.2 Atrioventricular block, complete (principal); Z68.41 Body mass index [BMI] 40.0-44.9, adult; D69.6 Thrombocytopenia, unspecified; J32.0 Chronic maxillary sinusitis; R00.1 Bradycardia, unspecified; R60.0 Localized edema; N28.9 Disorder of kidney and ureter, unspecified; E66.9 Obesity, unspecified; I10 Essential (primary) hypertension; G43.909 Migraine, unspecified, not intractable, without status migrainosus; E78.5 Hyperlipidemia, unspecified; T46.1X5A Adverse effect of calcium-channel blockers, initial encounter; Z87.01 Personal history of pneumonia (recurrent); Z87.891 Personal history of nicotine dependence; Z91.19 Patient's noncompliance with other medical treatment and regimen; R94.31 Abnormal electrocardiogram [ECG] [EKG]; M25.512 Pain in left shoulder; G89.29 Other chronic pain; M54.5 Low back pain
CPT/HCPCS: 70450; 71010; 80048; 80053; 80061; 81001; 82550; 82552; 83735; 83880; 84484; 85025; 85027; 85610; 85730; 93005; 93306; J2405; J7030

== ENCOUNTER 2017-04-12 12:18 | Observation (INO) | payer OTHER, MEDICAID ==
[~2017-04-12] VITALS: Ht 175.3 cm; Wt 132.0 kg
[~2017-04-12 12:18] MED LIST changes: +AMOX TR K; -AUGM875T3 PO; -ERGO1CAP30 PO; +LISI10TA3 PO; -LOSA25TA PO; -NIFE1TAB85 PO; +VITA500012 PO
[2017-04-12 12:36] VITALS: PULSE 130; RESP 29; TEMP 98.7; O2SAT 100
[2017-04-12 12:43] VITALS: BP 182/111; PULSE 130; RESP 23; O2SAT 100
[2017-04-12] MEDS ORDERED: SODIUM CHLORIDE 0.9% FLUSH 10 ML FLUSH IVF PRN (13:00)
[2017-04-12] MEDS ORDERED: METOPROLOL TARTRATE 5 MG/5 ML VIAL IVS SCH (13:00)
--- NOTE | 2017-04-12 13:02 | PD ---
HPI Chief Complaint: Cardiac Complaint Time Seen by Provider: 12:58 Travel History International Travel<30 days: No Contact w/Intl Traveler<30days: No Traveled to known affect area: No History of Present Illness HPI 61-year-old female patient with history of CAD, CHF, multiple medical issues, pacer follows up with Dr. Ozuna, presents to the ER today because of elevated blood pressures seen at her primary care doctor's office. She states that she has dyspnea on exertion at times but is not having any today. She denies any chest pains, difficulty walking, talking, headaches, vomiting, or other symptoms. She states that she did not take her metoprolol and her Lasix this morning because she wanted to be able to concentrate during the doctor's visit, and states that those medications make her PE and make her sleepy, both of which is problematic when visiting a doctor. Modifying Factors: None Associated Signs & Symptoms: Elevated blood pressure, elevated heart rate Risk Factors: History of tachycardia, skin medications, CHF history PFSH Past Medical History Cardiac Catheterization: No Cardiovascular Problems: Yes High Cholesterol: No Congestive Heart Failure: Yes Coronary Artery Disease: Yes Diabetes: No Diminished Hearing: No Hypertension: Yes Musculoskeletal: Yes Respiratory: Yes Renal Failure: Yes (chronic kidney disease stage 3) Past Surgical History Coronary Artery Bypass Graft: No Gynecologic Surgery: Yes Hysterectomy: Yes Other Surgery: Yes (trach placement and removal) Family History Family Myocardial Infarction: Yes Social History Alcohol Use: No Tobacco Use: Yes (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 A DAY-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) Substance Use: No Allergies-Medications (Allergen,Severity, Reaction): Coded Allergies: morphine (Unverified Allergy, Severe, Seizures, 04/12/17) shellfish derived (Unverified Allergy, Mild, ABDOMINAL PAIN, 04/12/17) nifedipine (Unverified Adverse Reaction, Severe, 04/12/17) Complete heart block Reported Meds & Prescriptions Reported Meds & Active Scripts Active Reported Eliquis (Apixaban) 5 Mg Tab 5 Mg PO BID Aspirin 81 Mg Chew 81 Mg CHEW DAILY Spironolactone 25 Mg Tab 25 Mg PO DAILY Pantoprazole (Pantoprazole Sodium) 40 Mg Tab 40 Mg PO DAILY Lisinopril 20 Mg Tab 20 Mg PO BID Diltiazem CD 24 HR 240 Mg Caper 240 Mg PO DAILY Furosemide 40 Mg Tab 40 Mg PO DAILY Metoprolol Tartrate 50 Mg Tab 50 Mg PO BID Review of Systems Except as stated in HPI: all other systems reviewed are Neg Physical Exam Narrative GENERAL: Well-developed elderly -Irish female patient currently in mild distress. Awake and oriented 3. SKIN: Focused skin assessment warm/dry. HEAD: Atraumatic. Normocephalic. EYES: Pupils equal and round. No scleral icterus. No injection or drainage. ENT: No nasal bleeding or discharge. Mucous membranes pink and moist. NECK: Trachea midline. No JVD. CARDIOVASCULAR: Fast and regular rhythm. No murmur appreciated. RESPIRATORY: No accessory muscle use. Clear to auscultation. Breath sounds equal bilaterally. GASTROINTESTINAL: Abdomen soft, non-tender, nondistended. Hepatic and splenic margins not palpable. MUSCULOSKELETAL: No obvious deformities. No clubbing. No cyanosis. Trace pitting edema of both feet. NEUROLOGICAL: Awake and alert. No obvious cranial nerve deficits. Motor grossly within normal limits. Normal speech. PSYCHIATRIC: Appropriate mood and affect; insight and judgment normal. Data Data Last Documented VS Vital Signs Date Time Temp Pulse Resp B/P (MAP) Pulse Ox O2 Delivery O2 Flow Rate FiO2 04/12/17 14:11 97 18 147/112 (124) 96 Room Air 04/12/17 12:36 98.7 Orders Orders Electrocardiogram (04/12/17 ) Basic Metabolic Panel (Bmp) (04/12/17 12:58) Ckmb (Isoenzyme) Profile (04/12/17 12:58) Complete Blood Count With Diff (04/12/17 12:58) Magnesium (Mg) (04/12/17 12:58) Prothrombin Time / Inr (Pt) (04/12/17 12:58) Act Partial Throm Time (Ptt) (04/12/17 12:58) Troponin I (04/12/17 12:58) Chest, Single Ap (04/12/17 12:58) Ecg Monitoring (04/12/17 12:58) Bilateral Bp Monitoring (04/12/17 12:58) Iv Access Insert/Monitor (04/12/17 12:58) Oximetry (04/12/17 12:58) Oxygen Administration (04/12/17 12:58) Sodium Chloride 0.9% Flush (Ns Flush) (04/12/17 13:00) Metoprolol Tartrate Inj (Lopressor Inj) (04/12/17 13:00) Electrocardiogram (04/12/17 13:48) Admit Order (Ed Use Only) (04/12/17 14:39) Labs Laboratory Tests Test 04/12/17 13:25 04/12/17 13:35 White Blood Count 7.1 TH/MM3 Red Blood Count 5.12 MIL/MM3 Hemoglobin 15.0 GM/DL Hematocrit 46.0 % Mean Corpuscular Volume 89.9 FL Mean Corpuscular Hemoglobin 29.3 PG Mean Corpuscular Hemoglobin Concent 32.6 % Red Cell Distribution Width 17.5 % Platelet Count 144 TH/MM3 Mean Platelet Volume 10.4 FL Neutrophils (%) (Auto) 36.9 % Lymphocytes (%) (Auto) 47.0 % Monocytes (%) (Auto) 13.0 % Eosinophils (%) (Auto) 2.4 % Basophils (%) (Auto) 0.7 % Neutrophils # (Auto) 2.6 TH/MM3 Lymphocytes # (Auto) 3.3 TH/MM3 Monocytes # (Auto) 0.9 TH/MM3 Eosinophils # (Auto) 0.2 TH/MM3 Basophils # (Auto) 0.1 TH/MM3 CBC Comment DIFF FINAL Differential Comment Prothrombin Time 12.5 SEC Prothromb Time International Ratio 1.1 RATIO Activated Partial Thromboplast Time 28.5 SEC Blood Urea Nitrogen 31 MG/DL Creatinine 1.50 MG/DL Random Glucose 78 MG/DL Calcium Level 9.2 MG/DL Magnesium Level 1.9 MG/DL Sodium Level 136 MEQ/L Potassium Level 4.0 MEQ/L Chloride Level 106 MEQ/L Carbon Dioxide Level 22.5 MEQ/L Anion Gap 8 MEQ/L Estimat Glomerular Filtration Rate 42 ML/MIN Total Creatine Kinase 70 U/L Troponin I LESS THAN 0.02 NG/ML MDM Medical Decision Making Medical Screen Exam Complete: Yes Emergency Medical Condition: Yes Medical Record Reviewed: Yes Interpretation(s) EKG shows A. fib with rapid ventricular response at a rate of 130 bpm. Laboratory Tests Test 04/12/17 13:25 04/12/17 13:35 Red Cell Distribution Width 17.5 % (11.6-17.2) Platelet Count 144 TH/MM3 (150-450) Lymphocytes (%) (Auto) 47.0 % (9.0-44.0) Monocytes (%) (Auto) 13.0 % (0.0-8.0) Prothrombin Time 12.5 SEC (9.8-11.6) Blood Urea Nitrogen 31 MG/DL (7-18) Creatinine 1.50 MG/DL (0.50-1.00) Estimat Glomerular Filtration Rate 42 ML/MIN (>89) Troponin I LESS THAN 0.02 NG/ML Differential Diagnosis Elevated blood pressure, fast heart rate: Poorly controlled hypertension versus dysrhythmias versus dehydration versus metabolic issues Narrative Course Chest x-ray did not show any signs of acute processes. EKG initially shows sinus tachycardia versus A. fib with RVR in the 130s. Metoprolol was given in the ER with improvement rate to the 100s. However, there was notable underlying flutter waves. There was good blood pressure response. At this point, my plan would be to admit the patient for further evaluation. Case is discussed with Dr. Andrade for admission. Diagnosis Primary Impression: Hypertensive urgency Additional Impression: Atrial flutter with rapid ventricular response Admitting Information Admitting Physician Requests: Admit Ryan Garcia MD Apr 12, 2017 13:02
[2017-04-12 13:33] VITALS: BP 148/109; PULSE 119; RESP 19; O2SAT 97
[2017-04-12 13:52] LABS: AUTOMATED NEUTROPHIL # 2.6 TH/MM3 (1.8-7.7); BASOPHIL # 0.1 TH/MM3 (0-0.2); BASOPHIL % 0.7 % (0.0-2.0); EOSINOPHIL # 0.2 TH/MM3 (0-0.4); EOSINOPHIL % 2.4 % (0.0-4.0); HEMO FLAGS DIFF FINAL; LYMPHOCYTE # 3.3 TH/MM3 (1.0-4.8); MEAN CELL VOLUME 89.9 FL (80.0-100.0); MEAN CORPUSCULAR HEMOGLOBIN 29.3 PG (27.0-34.0); MEAN CORPUSCULAR HGB CONC 32.6 % (32.0-36.0); NEUT % 36.9 % (16.0-70.0); PLATELET COUNT 144 TH/MM3 (150-450); RED BLOOD COUNT 5.12 MIL/MM3 (4.00-5.30); RED CELL DISTRIBUTION WIDTH 17.5 % (11.6-17.2); WHITE BLOOD COUNT 7.1 TH/MM3 (4.0-11.0)
[2017-04-12 14:02] LABS: APTT (PATIENT) 28.5 SEC (24.3-30.1); INTERNATIONAL NORMALIZED RATIO 1.1 RATIO; PROTHROMBIN TIME - PATIENT 12.5 SEC (9.8-11.6)
[2017-04-12 14:04] LABS: ANION GAP 8 MEQ/L (5-15); BICARBONATE 22.5 MEQ/L (21.0-32.0); BLOOD UREA NITROGEN 31 MG/DL (7-18); CHLORIDE 106 MEQ/L (98-107); GLOMERULAR FILTRATION RATE 42 ML/MIN (>89); MAGNESIUM 1.9 MG/DL (1.5-2.5); SODIUM (NA) 136 MEQ/L (136-145)
[2017-04-12] MEDS ORDERED: SPIR25TA PO (14:10)
[2017-04-12] MEDS ORDERED: METO50TA PO (14:10)
[2017-04-12] MEDS ORDERED: FURO40TA PO (14:10)
[2017-04-12] MEDS ORDERED: LISI-515 PO (14:10)
[2017-04-12] MEDS ORDERED: ASPI-516 CHEW (14:10)
[2017-04-12] MEDS ORDERED: PANT40TA3 PO (14:10)
[2017-04-12] MEDS ORDERED: DILT240C44 PO (14:10)
[2017-04-12 14:11] VITALS: BP 147/112; PULSE 97; RESP 18; O2SAT 96
[2017-04-12] MEDS ORDERED: APIX5TAB PO (14:11)
--- NOTE | 2017-04-12 14:13 | RADRPT ---
EXAM DATE/TIME: 04/12/2017 13:18 [facility] COMPARISON: CHEST SINGLE AP, October 27, 2016, 7:57. INDICATIONS : High blood pressure, dizziness. MEDICAL HISTORY : Hypertension. Myocardial infarction. SURGICAL HISTORY : CABG. ENCOUNTER: Initial ACUITY: 2 days PAIN SCORE: 0/10 LOCATION: Bilateral chest FINDINGS: A single view of the chest demonstrates the lungs to be symmetrically aerated without evidence of mas s, infiltrate or effusion. Pacer on the left. The cardiomediastinal contours are unremarkable. Oss eous structures are intact. CONCLUSION: Pacer otherwise negative. Aaron Brambila MD FACR on April 12, 2017 at 14:11 Board Certified Radiologist. This report was verified electronically.
[2017-04-12 14:14] LABS: CREATINE KINASE 70 U/L (26-192)
[2017-04-12] MEDS ORDERED: NALOXONE HCL 0.4 MG/ML AMP IV PUSH PRN (14:45)
[2017-04-12] MEDS ORDERED: MAGNESIUM HYDROXIDE SUSP 30 ML CUP PO PRN (14:45)
[2017-04-12] MEDS ORDERED: BISACODYL 10 MG SUPP RECTAL PRN (14:45)
[2017-04-12] MEDS ORDERED: METOCLOPRAMIDE HCL 10 MG/2 ML VIAL IV PUSH PRN (14:45)
[2017-04-12] MEDS ORDERED: SENNOSIDES 8.6 MG TAB PO PRN (14:45)
[2017-04-12] MEDS ORDERED: LACTULOSE SYRUP 20 GM/30 ML CUP PO PRN (14:45)
[2017-04-12] MEDS ORDERED: ONDANSETRON HCL 4 MG/2 ML VIAL IVP PRN (14:45)
[2017-04-12] MEDS ORDERED: SODIUM CHLORIDE 0.9% FLUSH 10 ML FLUSH IV FLUSH PRN (14:45)
[2017-04-12] MEDS ORDERED: ACETAMINOPHEN 325 MG TAB PO PRN (14:45)
--- NOTE | 2017-04-12 16:49 | HHI.HP ---
[facility] Unknown Admission Diagnosis atrial flutter with RVR/hypertensive urgency Diagnoses: Chief Complaint: PCP sent patient due to elevated BP and heart rate. Travel History International Travel<30 Days: No Contact w/Intl Traveler <30 Da: No Traveled to Known Affected Are: No History of Present Illness Ms. Verma is a pleasant 61 year old female with a history of complete heart block s/p pacemaker placement who was sent to the ED by her PCP due to high blood pressure and high heart rate. Patient repeatedly mentions that she has no symptoms. She denies any chest pain, shortness of breath, fever , chills. Denies any dizziness, lightheadedness. She did not take her Lasix or Metoprolol this morning. She denies any changes in bowel or bladder habits. She received metoprolol IV 5mg in the ED. Her blood pressure improved 182/111 to 147 /112 and heart rate improved from 130s to about 90-100. Review of Systems Except as stated in HPI: all other systems reviewed are Neg Past Family Social History Past Medical History Hypertension Pneumonia status post intubation Migraines Alcohol abuse Symptomatic bradycardia Complete heart block Past Surgical History Partial hysterectomy Reported Medications Eliquis (Apixaban) 5 Mg Tab 5 Mg PO BID Aspirin 81 Mg Chew 81 Mg CHEW DAILY Spironolactone 25 Mg Tab 25 Mg PO DAILY Pantoprazole (Pantoprazole Sodium) 40 Mg Tab 40 Mg PO DAILY Lisinopril 20 Mg Tab 20 Mg PO BID Diltiazem CD 24 HR 240 Mg Caper 240 Mg PO DAILY Furosemide 40 Mg Tab 40 Mg PO DAILY Metoprolol Tartrate 50 Mg Tab 50 Mg PO BID Allergies: Coded Allergies: morphine (Unverified Allergy, Severe, Seizures, 04/12/17) shellfish derived (Unverified Allergy, Mild, ABDOMINAL PAIN, 04/12/17) nifedipine (Unverified Adverse Reaction, Severe, 04/12/17) Complete heart block Family History Her mother had cirrhosis from alcohol abuse Social History The patient quit drinking in 2006. She quit smoking last year. She denies any drug use. Physical Exam Vital Signs Vital Signs Date Time Temp Pulse Resp B/P (MAP) Pulse Ox O2 Delivery O2 Flow Rate FiO2 04/12/17 14:11 97 18 147/112 (124) 96 Room Air 04/12/17 13:33 119 19 148/109 (122) 97 Room Air 04/12/17 13:29 96 Room Air 04/12/17 13:29 (134) Room Air 04/12/17 12:44 130 04/12/17 12:43 130 23 182/111 (134) 100 04/12/17 12:36 98.7 130 29 100 Physical Exam GENERAL: This is a well-nourished, well-developed patient, in no apparent distress. SKIN: No rashes, ecchymoses or lesions. Cool and dry. HEAD: Atraumatic. Normocephalic. No temporal or scalp tenderness. EYES: Pupils equal round and reactive. Extraocular motions intact. No scleral icterus. No injection or drainage. ENT: Nose without bleeding, purulent drainage or septal hematoma. Throat without erythema, tonsillar hypertrophy or exudate. Uvula midline. Airway patent. NECK: Trachea midline. No JVD or lymphadenopathy. Supple, nontender, no meningeal signs. CARDIOVASCULAR: Regular rate and rhythm without murmurs, gallops, or rubs. RESPIRATORY: Clear to auscultation. Breath sounds equal bilaterally. No wheezes , rales, or rhonchi. GASTROINTESTINAL: Abdomen soft, non-tender, nondistended. No hepato-splenomegaly , or palpable masses. No guarding. MUSCULOSKELETAL: Extremities without clubbing, cyanosis, or edema. No joint tenderness, effusion, or edema noted. No calf tenderness. Negative Homans sign bilaterally. NEUROLOGICAL: Awake and alert. Cranial nerves II through XII intact. Motor and sensory grossly within normal limits. Five out of 5 muscle strength in all muscle groups. Normal speech. Laboratory Laboratory Tests Test 04/12/17 13:25 04/12/17 13:35 White Blood Count 7.1 Red Blood Count 5.12 Hemoglobin 15.0 Hematocrit 46.0 Mean Corpuscular Volume 89.9 Mean Corpuscular Hemoglobin 29.3 Mean Corpuscular Hemoglobin Concent 32.6 Red Cell Distribution Width 17.5 Platelet Count 144 Mean Platelet Volume 10.4 Neutrophils (%) (Auto) 36.9 Lymphocytes (%) (Auto) 47.0 Monocytes (%) (Auto) 13.0 Eosinophils (%) (Auto) 2.4 Basophils (%) (Auto) 0.7 Neutrophils # (Auto) 2.6 Lymphocytes # (Auto) 3.3 Monocytes # (Auto) 0.9 Eosinophils # (Auto) 0.2 Basophils # (Auto) 0.1 CBC Comment DIFF FINAL Differential Comment Prothrombin Time 12.5 Prothromb Time International Ratio 1.1 Activated Partial Thromboplast Time 28.5 Blood Urea Nitrogen 31 Creatinine 1.50 Random Glucose 78 Calcium Level 9.2 Magnesium Level 1.9 Sodium Level 136 Potassium Level 4.0 Chloride Level 106 Carbon Dioxide Level 22.5 Anion Gap 8 Estimat Glomerular Filtration Rate 42 Total Creatine Kinase 70 Troponin I LESS THAN 0.02 Result Diagram: 04/12/17 1325 04/12/17 1335 Caprini VTE Risk Assessment Caprini VTE Risk Assessment: Mod/High Risk (score >= 2) Caprini Risk Assessment Model Point Value = 1 Point Value = 2 Point Value = 3 Point Value = 5 Age 41-60 Minor surgery BMI > 25 kg/m2 Swollen legs Varicose veins or History of unexplained or recurrent spontaneous Oral contraceptives or hormone replacement Sepsis (< 1 month) Serious lung disease, including pneumonia (< 1 month) Abnormal pulmonary function Acute myocardial infarction Congestive heart failure (< 1 month) History of inflammatory bowel disease Medical patient at bed rest Age 61-74 Arthroscopic surgery Major open surgery (> 45 min) Laparoscopic surgery (> 45 min) Malignancy Confined to bed (> 72 hours) Immobilizing plaster cast Central venous access Age >= 75 History of VTE Family history of VTE Factor V Leiden Prothrombin [id number] Lupus anticoagulant Anticardiolipin antibodies Elevated serum homocysteine Heparin-induced thrombocytopenia Other congenital or acquired thrombophilia Stroke (< 1 month) Elective arthroplasty Hip, pelvis, or leg fracture Acute spinal cord injury (< 1 month) Prophylaxis Regimen Total Risk Factor Score Risk Level Prophylaxis Regimen 0-1 Low Early ambulation 2 Moderate Order ONE of the following: *Sequential Compression Device (SCD) *Heparin 5000 units SQ BID 3-4 Higher Order ONE of the following medications: *Heparin 5000 units SQ TID *Enoxaparin/Lovenox 40 mg SQ daily (WT < 150 kg, CrCl > 30 mL/min) *Enoxaparin/Lovenox 30 mg SQ daily (WT < 150 kg, CrCl > 10-29 mL/min) *Enoxaparin/Lovenox 30 mg SQ BID (WT < 150 kg, CrCl > 30 mL/min) AND/OR *Sequential Compression Device (SCD) 5 or more Highest Order ONE of the following medications: *Heparin 5000 units SQ TID (Preferred with Epidurals) *Enoxaparin/Lovenox 40 mg SQ daily (WT < 150 kg, CrCl > 30 mL/min) *Enoxaparin/Lovenox 30 mg SQ daily (WT < 150 kg, CrCl > 10-29 mL/min) *Enoxaparin/Lovenox 30 mg SQ BID (WT < 150 kg, CrCl > 30 mL/min) AND *Sequential Compression Device (SCD) Assessment and Plan Problem List: (1) Accelerated hypertension ICD Code: I10 - Essential (primary) hypertension (2) Atrial flutter with rapid ventricular response ICD Code: I48.92 - Unspecified atrial flutter Status: Acute Assessment and Plan Ms. Verma is a 61 year old female with a history of complete heart block s/p pacemaker placement who was sent to the ED by her PCP due to high heart rate and high BP. In the ED, she was found to have atrial flutter with rates in the 130s range. - Accelerated hypertension - BP improved, currently systolic 147. Diastolic is somewhat high, 112. - Will re-start patient's home medications including metoprolol, diltiazem, lasix, Aldactone. - She is also on Lisinopril 20mg Qday. - Atrial flutter with RVR - History of Complete heart block s/p pacemaker placement. - Continue Metoprolol 50mg BID, Diltiazem 240mg Qday. - Continue Apixaban 5mg BID for stroke prevention. - Device interrogation. - Will consult Dr. Ozuna for further input. Full code. Apixaban. Stacey Andrade DO Apr 12, 2017 16:49
[2017-04-12 17:00] VITALS: BP 137/110; PULSE 98; RESP 18; TEMP 97.8; O2SAT 96
--- NOTE | 2017-04-12 19:23 | MB ---
cc: RILEY VALDEZ M.D. DATE OF CONSULTATION 04/12/17 ELECTROPHYSIOLOGY CONSULT REASON FOR CONSULTATION Atrial flutter with biventricular response. HISTORY OF PRESENT ILLNESS Mrs. Verma is a 61-year-old -[place] Citizen female, morbid obesity, high blood pressure, AV block, previous permanent pacemaker inserted, atrial flutter with biventricular response. Medication was initiated. The patient stopped taking the beta sherri, admitted due to atrial flutter with biventricular response. Cardizem was initiated during hospitalization. Heart rate can barely controlled. I was consulted for evaluation and management. The chart was reviewed. The patient was evaluated. ALLERGIES MORPHINE, NIFEDIPINE AND SHELLFISH. SOCIAL HISTORY Negative for smoking and drinking. FAMILY HISTORY Noncontributory to her current medical condition. MEDICATIONS 1. She is on acetaminophen. 2. She is on Eliquis. 3. She is on Cardizem CD 240 milligrams a day. 4. Lasix 40 milligrams a day. 5. Lisinopril 20 milligrams twice a day. 6. Metoprolol 50 milligrams twice a day. 7. Protonix. 8. Aldactone. REVIEW OF SYSTEMS Currently she refers no chest pain. Some palpitation and shortness of breath but no vomiting. No fever. PHYSICAL EXAMINATION GENERAL: Alert, fully oriented. VITAL SIGNS: Her blood pressure is 147/112, pulse 97, respiratory 18. LUNGS: Ventilated. CARDIOVASCULAR: S1-S2, no gallop. No murmur. Tachycardiac. ABDOMEN: Soft, obese. No mass. No bruits. EXTREMITIES: No edema. CARDIOLOGY STUDIES Electrocardiogram shows atrial flutter with biventricular response. LABORATORY DATA Hemoglobin 15, white blood cell 7.1, potassium 4.0, creatinine 1.50. Troponin less than 0.02. INR 1.1. ASSESSMENT AND RECOMMENDATIONS Mrs. Verma' heart rate very difficult to control. She is in atrial flutter. Electrophysiology study and ablation discussed. The risks, the nature and the benefit of the procedure are clearly stated to her. The risks include pneumothorax, cardiac perforation, stroke and even . She understood and agreed to proceed. Blood pressure med will be reevaluated. Riley Valdez MD HS/EO /6:20 PM /7:16 PM
[2017-04-12 20:00] VITALS: BP 130/78; PULSE 125; PULSE 98; RESP 18; TEMP 98.4; O2SAT 97
[2017-04-12] MEDS ORDERED: APIXABAN 5 MG TABLET PO SCH (21:00)
[2017-04-12] MEDS: METOPROLOL TARTRATE 50 MG TAB PO SCH (21:37)
[2017-04-12] MEDS: LISINOPRIL 20 MG TAB PO SCH (21:37)
[2017-04-12] MEDS: SODIUM CHLORIDE 0.9% FLUSH 10 ML FLUSH IV FLUSH SCH (21:38)
[2017-04-13] VITALS (7 sets, daily range): BP systolic 113–137; BP diastolic 80–99; PULSE 67–98; RESP 18–22; TEMP 97.5–98.7; O2SAT 95–100
[2017-04-13 08:30] LABS: AUTOMATED NEUTROPHIL # 2.1 TH/MM3 (1.8-7.7); BASOPHIL # 0.1 TH/MM3 (0-0.2); BASOPHIL % 1.3 % (0.0-2.0); EOSINOPHIL # 0.1 TH/MM3 (0-0.4); EOSINOPHIL % 2.9 % (0.0-4.0); HEMATOCRIT 44.8 % (35.0-46.0); HEMO FLAGS DIFF FINAL; LYMPH % 40.7 % (9.0-44.0); LYMPHOCYTE # 2.1 TH/MM3 (1.0-4.8); MEAN CELL VOLUME 89.6 FL (80.0-100.0); MEAN CORPUSCULAR HEMOGLOBIN 28.6 PG (27.0-34.0); MEAN CORPUSCULAR HGB CONC 31.9 % (32.0-36.0); NEUT % 41.1 % (16.0-70.0); PLATELET COUNT 132 TH/MM3 (150-450); WHITE BLOOD COUNT 5.1 TH/MM3 (4.0-11.0)
[2017-04-13 09:00] LABS: BICARBONATE 23.6 MEQ/L (21.0-32.0); POTASSIUM 4.2 MEQ/L (3.5-5.1)
[2017-04-13] MEDS: PANTOPRAZOLE SOD 40 MG DELAYED RELEASE TAB PO SCH (09:25)
[2017-04-13] MEDS: DILTIAZEM-CD 240 MG CAP ER PO SCH (09:25)
[2017-04-13] MEDS: SODIUM CHLORIDE 0.9% FLUSH 10 ML FLUSH IV FLUSH SCH ×2 (09:26→22:39)
[2017-04-13] MEDS: METOPROLOL TARTRATE 50 MG TAB PO SCH ×2 (09:26→22:38)
[2017-04-13] MEDS: ASPIRIN 81 MG CHEW TAB CHEW SCH (09:26)
[2017-04-13] MEDS: SPIRONOLACTONE 25 MG TAB PO SCH (09:26)
[2017-04-13] MEDS: FUROSEMIDE 40 MG TAB PO SCH (09:26)
[2017-04-13] MEDS: LISINOPRIL 20 MG TAB PO SCH ×2 (09:38→22:38)
--- NOTE | 2017-04-13 13:20 | HHI.PR ---
Subjective Remarks Follow-up atrial flutter. She denies chest pain, shortness of breath and palpitations. She insists on talking to cardiology prior to EPS. Discussed with RN Objective Vitals Vital Signs Date Time Temp Pulse Resp B/P (MAP) Pulse Ox O2 Delivery O2 Flow Rate FiO2 04/13/17 12:00 97.8 78 20 120/90 (100) 96 04/13/17 08:00 97.7 98 20 137/99 (112) 100 04/13/17 04:00 97.9 82 18 113/90 (98) 95 04/13/17 00:00 98.7 67 18 126/84 (98) 98 04/12/17 20:00 98 04/12/17 20:00 98.4 125 18 130/78 (95) 97 04/12/17 20:00 Room Air 04/12/17 17:00 97.8 98 18 137/110 (119) 96 04/12/17 14:11 97 18 147/112 (124) 96 Room Air 04/12/17 13:33 119 19 148/109 (122) 97 Room Air 04/12/17 13:29 96 Room Air 04/12/17 13:29 (134) Room Air I/O 04/12/17 04/12/17 04/12/17 04/13/17 04/13/17 04/13/17 07:00 15:00 23:00 07:00 15:00 23:00 Intake Total 240 ml Balance 240 ml Intake Oral 240 ml # Voids 1 # Bowel Movements 0 Result Diagram: 04/13/17 0809 04/13/17 0809 Imaging Last Impressions Chest X-Ray 04/12/17 1258 Signed Impressions: Service Date/Time: Wednesday, April 12, 2017 13:18 - CONCLUSION: Pacer otherwise negative. Aaron Brambila MD FACR Objective Remarks GENERAL: This is a well-nourished, well-developed patient, in no apparent distress. SKIN: No rashes, ecchymoses or lesions. Cool and dry. CARDIOVASCULAR: Regular rate and rhythm without murmurs, gallops, or rubs. RESPIRATORY: Clear to auscultation. Breath sounds equal bilaterally. No wheezes , rales, or rhonchi. GASTROINTESTINAL: Abdomen soft, non-tender, nondistended. No guarding. MUSCULOSKELETAL: Extremities without clubbing, cyanosis, or edema. No joint tenderness, effusion, or edema noted. No calf tenderness. Negative Homans sign bilaterally. NEUROLOGICAL: Awake and alert. Cranial nerves II through XII intact. Motor and sensory grossly within normal limits. Five out of 5 muscle strength in all muscle groups. Normal speech. A/P Problem List: (1) Accelerated hypertension ICD Code: I10 - Essential (primary) hypertension (2) Atrial flutter with rapid ventricular response ICD Code: I48.92 - Unspecified atrial flutter Status: Acute Assessment and Plan Ms. Verma is a 61 year old female with a history of complete heart block s/p pacemaker placement who was sent to the ED by her PCP due to high heart rate and high BP. In the ED, she was found to have atrial flutter with rates in the 130s range. - Accelerated hypertension - BP improved, currently asymptomatic - Continue patient's home medications including metoprolol, diltiazem, lasix , Aldactone and lisinopril. - She is also on Lisinopril 20mg Qday. - Atrial flutter with RVR - History of Complete heart block s/p pacemaker placement. - Continue Metoprolol 50mg BID, Diltiazem 240mg Qday. - Continue Apixaban 5mg BID for stroke prevention. - Device interrogation. - For EPS today. Check TSH - Chronic kidney disease stage III. Avoid nephrotoxins. Consider stopping Aldactone Full code. Apixaban, restart if okay with cardiology. Discharge Planning Discharge when cleared by cardiology Prabhakar Yeboah MD Apr 13, 2017 13:20
--- NOTE | 2017-04-13 17:19 | EKG ---
Date Performed: 04/12/2017 Time Performed: 13:48:04 PTAGE: 61 years EKG: Atrial flutter with rapid ventricular rate. BASED ON INTRINSIC RHYTHM MARKED LEFT AXIS KELLY ATION MODERATE T-WAVE ABNORMALITY, CONSIDER INFERIOR ISCHEMIA. ABNORMAL ECG PREVIOUS TRACING : 04/12/2017 12.47 DOCTOR: Fanny Bishop Interpretating Date/Time 04/13/2017 17:19:16
--- NOTE | 2017-04-13 17:19 | EKG ---
Date Performed: 04/12/2017 Time Performed: 12:47:26 PTAGE: 61 years EKG: ATRIAL FLUTTER/TACHYCARDIA WITH RAPID VENTRICULAR RESPONSE RIGHT BUNDLE BRANCH BLOCK LEFT A NTERIOR FASCICULAR BLOCK When compared to previous tracing, the patient now appears to Be in atrial f lutter. ABNORMAL ECG PREVIOUS TRACING : 10/30/2016 07.54 DOCTOR: Fanny Bishop Interpretating Date/Time 04/13/2017 17:18:06
--- NOTE | 2017-04-13 23:18 | HHI.PR ---
Subjective Remarks Feeling ok Objective Vital Signs Date Time Temp Pulse Resp B/P (MAP) Pulse Ox O2 Delivery O2 Flow Rate FiO2 04/13/17 16:30 98.0 76 22 134/80 (98) 95 04/13/17 12:00 97.8 78 20 120/90 (100) 96 04/13/17 08:00 Room Air 04/13/17 08:00 97.7 98 20 137/99 (112) 100 04/13/17 08:00 79 04/13/17 04:00 97.9 82 18 113/90 (98) 95 04/13/17 00:00 98.7 67 18 126/84 (98) 98 I/O 04/13/17 04/13/17 04/13/17 04/14/17 04/14/17 04/14/17 07:00 15:00 23:00 07:00 15:00 23:00 Intake Total 240 ml Balance 240 ml Intake Oral 240 ml # Voids 1 # Bowel Movements 0 Result Diagram: 04/13/17 0809 04/13/17 0809 Imaging Alert, fully oriented Lungs: ventilated Heart: S1, S2 irregular, no gallop Abdomen: Obese, no mass Ext: no edema Last Impressions Chest X-Ray 04/12/17 1258 Signed Impressions: Service Date/Time: Wednesday, April 12, 2017 13:18 - CONCLUSION: Pacer otherwise negative. Aaron Brambila MD FACR Current Medications Medications (Trade) Dose Ordered Sig/Chip Route Start Time Stop Time Status Last Admin (NS Flush) 2 ml UNSCH PRN IV FLUSH 04/12/17 14:45 (NS Flush) 2 ml BID IV FLUSH 04/12/17 21:00 04/13/17 22:39 (Tylenol) 650 mg Q4H PRN PO 04/12/17 14:45 04/13/17 01:31 (Zofran Inj) 4 mg Q6H PRN IVP 04/12/17 14:45 (Reglan Inj) 5 mg Q6H PRN IV PUSH 04/12/17 14:45 (Narcan Inj) 0.4 mg UNSCH PRN IV PUSH 04/12/17 14:45 (Senokot) 17.2 mg Q12H PRN PO 04/12/17 14:45 (Dulcolax Supp) 10 mg DAILY PRN RECTAL 04/12/17 14:45 (Lactulose Liq) 30 ml DAILY PRN PO 04/12/17 14:45 (Aspirin Chew) 81 mg DAILY CHEW 04/13/17 09:00 04/13/17 09:26 (Cardizem Cd) 240 mg DAILY PO 04/13/17 09:00 04/13/17 09:25 (Lasix) 40 mg DAILY PO 04/13/17 09:00 04/13/17 09:26 (Prinivil) 20 mg BID PO 04/12/17 21:00 04/13/17 22:38 (Lopressor) 50 mg BID PO 04/12/17 21:00 04/13/17 22:38 (Protonix) 40 mg DAILY PO 04/13/17 09:00 04/13/17 09:25 (Aldactone) 25 mg DAILY PO 04/13/17 09:00 04/13/17 09:26 Assessment and Plan Problem List: (1) Atrial flutter with rapid ventricular response ICD Codes: I48.92 - Unspecified atrial flutter Status: Acute Plan: In atrial flutter HR still difficult to control EPS and ablation tomorrow Patient understand the risks, the nature and benefits of the procedure. She agrees to proceed (2) Chest pain ICD Codes: R07.9 - Chest pain, unspecified Status: Acute Plan: No chest pain reported Amari Ozuna MD Apr 13, 2017 23:18
[2017-04-14] VITALS (11 sets, daily range): BP systolic 112–134; BP diastolic 72–97; PULSE 60–78; RESP 18–19; TEMP 97.8–98.1; O2SAT 96–100
[2017-04-14] MEDS ORDERED: HEPARIN-NS/PF INJ 1,000 ML ONE (07:09)
[2017-04-14] MEDS ORDERED: SODIUM CHLOR 0.9% 250 ML INJ 250 ML ONE (07:16)
[2017-04-14] MEDS ORDERED: ISOPROTERENOL HCL 1 MG/5 ML AMP ONE (07:16)
[2017-04-14] MEDS ORDERED: DO NOT ADM ANY ANTICOAGULANT DRUGS PRN (07:30)
[2017-04-14 07:48] LABS: AUTOMATED NEUTROPHIL # 2.6 TH/MM3 (1.8-7.7); BASOPHIL # 0.1 TH/MM3 (0-0.2); EOSINOPHIL # 0.2 TH/MM3 (0-0.4); EOSINOPHIL % 2.5 % (0.0-4.0); HEMATOCRIT 45.7 % (35.0-46.0); HEMO FLAGS DIFF FINAL; LYMPH % 40.1 % (9.0-44.0); LYMPHOCYTE # 2.4 TH/MM3 (1.0-4.8); MEAN CELL VOLUME 89.2 FL (80.0-100.0); MEAN CORPUSCULAR HEMOGLOBIN 29.3 PG (27.0-34.0); MEAN CORPUSCULAR HGB CONC 32.9 % (32.0-36.0); MONO % 13.8 % (0.0-8.0); NEUT % 42.6 % (16.0-70.0); PLATELET COUNT 127 TH/MM3 (150-450); RED BLOOD COUNT 5.12 MIL/MM3 (4.00-5.30); WHITE BLOOD COUNT 6.1 TH/MM3 (4.0-11.0)
[2017-04-14 08:15] LABS: BICARBONATE 23.6 MEQ/L (21.0-32.0); POTASSIUM 4.2 MEQ/L (3.5-5.1)
--- NOTE | 2017-04-14 08:30 | CATHPROC ---
[facility] HIS Report Study Information Study Number Admission Scheduled Start Study Start [id number] Apr 12 2017 2:41PM 04/13/2017 Apr 14 2017 6:38AM [facility] Service Electrophysiology Study Admit Source Facility Department Other [facility] Physician and Clinical Staff Initial Amari Basilio Supervisory Historian Blanca Albert,RT(R) TECH2 Other Anesthesia, ANALYST PROGRAMMER Recorder Trisha Raya,RN Recorder Dinora Scanlon,TL Scrub Grant Vila,RT(R) Procedures Performed Procedure Location (Site) Vessel Name Ablation Procedure RF Ablation Isthmus Other Equipment Time Brass And Wind Instrument Repairer Description Size Mfg Part Number Used/Scraped BIOSENSE TABARES CATHETER, CELSIUS DS, 8MM, F [id number] 07:50 FR 7 Used INC. TYPE QUAD *[id number] 06:43 [employer] PACK, CCL CUSTOM * Used *[id number] 06:43 [employer]ov[employer] PACER RYAN, LIMB * 2530 *[id number] Used [id number] 07:12 NAMIC TUBING, HIGH PRESSURE 48" 48" Used *[id number] 06:43 [employer] MED[employer] BLANKET,WARM AIR CCL * Used *[id number] 07:13 [employer] MED[employer] CATHETER, JSN, QUAD FR 5 Used *[id number] 07:13 [employer] MED[employer] CATHETER, JSN, QUAD FR 5 Used *[id number] 07:13 [employer] MED[employer] CATHETER, JSN, QUAD FR 5 Used *[id number] 07:13 [employer] MEDICAL CATHETER, JSN, QUAD FR 5 Used *[id number] 06:43 [employer] MEDICAL ELECTRODE KIT, STACY X SURFACE * Used *[id number] 07:13 [employer] SHEATH, EPS, FR5 FAST CATH FR 5 Used *[id number] 07:13 [employer] MED[employer] SHEATH, EPS, FR5 FAST CATH FR 5 Used *[id number] 07:13 [employer] SHEATH, EPS, FR5 FAST CATH FR 5 Used *[id number] 07:13 [employer] MED[employer] SHEATH, EPS, FR6 FAST CATH FR 6 Used *[id number] 07:13 [employer] MED[employer] SHEATH, EPS, FR8 FAST CATH FR 8 Used *[id number] [place] PAD, ELECTROSURGICAL 06:43 * [id number] *[id number] Used SURGICAL GROUNDING (BLUE) History: Allergies Allergy Reaction morphine Seizures Shellfish ABDOMINAL PAIN nifedipine shellfish derived ABDOMINAL PAIN History: Risk Factors Hypertension Yes Labs Hgb (g/dl) Hct (%) RBC (MIL/MM3) WBC (l/cumm) Platelets (thousands) 11.60-17.00 35.00-51.00 4.00-5.90 4.00-11.00 150.00-450.00 14.0 44 5 5 132 Glucose (mg/dl) BUN (mg/dl) Creatinine (mg/dl) BUN:Creatinine (1:x) 74.00-106.00 7.00-18.00 0.50-1.30 10.00-20.00 89 29 1.4 20.7 Na (meq/l) K (meq/l) Cl (meq/l) CO2 (mmol/L) Ca (mg/dl) 136.00-145.00 3.50-5.10 98.00-107.00 21.00-32.00 8.50-10.10 139 4.2 108 23.6 8.8 PT (sec) PTT (sec) INR (PTT:PT) 9.80-11.60 24.30-30.10 0.90-1.10 12.5 28.5 1.1 Medication Medication Total Dose (Bolus/Oral) Medication Total Dosage/Unit 1% XYLOCAINE 40 mL Medications (Bolus/Oral) Medication Time Given Dosage/Unit Administered By Reason 1% XYLOCAINE 04/14/2017 7:40:35 AM 20 mL Amari Ozuna 20 mL 1% XYLOCAINE given in lab by Amari Ozuna in Left Groin via Subcutaneous. 1% XYLOCAINE 04/14/2017 7:42:39 AM 20 mL Amari Ozuna 20 mL 1% XYLOCAINE given in lab by Amari Ozuna in Right Groin via Subcutaneous. Medication (Drip) Medication Time Given Dosage/Unit Concentration/Unit Diluent (ml) Solution ISUPREL 04/14/2017 7:57:10 AM 10 mcg/min 1 mg 250 NaCl .9 10 mcg/min ISUPREL given in lab by Anesthesia, ANALYST PROGRAMMER via Peripheral IV. Pump/Drip Flow = 150 ml/hr usi ng NaCl .9 with a concentration of 1 mg in 250 ml. Ordered by Amari Ozuna. Reason: As per physicians verbal order. ISUPREL 04/14/2017 8:07:19 AM 0 mcg/min 1 mg 250 NaCl .9 Isuprel infusion stopped. Initial Case Assessment Cardiovascular HR Rhythm NIBP Chest Pain 107 af 151/108 0 Edema Present Skin color Skin None Normal Warm Dry Circulatory - Right Pulses Dorsalis Pedis 1 Scale (0,1,2,3,4,d) Circulatory - Left Pulses Dorsalis Pedis 1 Scale (0,1,2,3,4,d) Circulatory - Lower Extremities Color Lower Right Color Lower Left Normal Normal Neurological State Oriented to time-place- Alert Moves all extremities person Respiration - General Respiration Rate SpO2 (%) O2 (lpm) (B/min) 24 100 6 Final Case Assessment Cardiovascular HR Rhythm NIBP 60 nsr 114/69 Edema Present Skin color Skin None Normal Warm Dry Circulatory - Right Pulses Dorsalis Pedis 1 Scale (0,1,2,3,4,d) Circulatory - Left Pulses Dorsalis Pedis 1 Scale (0,1,2,3,4,d) Circulatory - Lower Extremities Color Lower Right Color Lower Left Normal Normal Neurological State Oriented to time-place- Lethargic Moves all extremities person Respiration - General Respiration Rate SpO2 (%) O2 (lpm) (B/min) 15 97 4 Chronological Log Time Study Chronological Log 7:00:30 Patient arrived via Bed. 7:00:31 Patient Name, D.O.B, / Armband Verified By R.N. 7:04:26 Consent signed by the physician and the patient and verified by the [facility] staff. 7:04:27 Pre-op and post- op instructions given; patient acknowledges understanding of instructions. 7:04:28 Verbal Stimulation=2 Physical Stimulation=2 Airway=2 Respiration=2 TOTAL=8. (0=absent, 1=li mited, 2=present) 7:04:41 Patient has been NPO for More than 6Hrs. 7:04:41 Skin Breakdown- none per pt 7:04:48 Patient Warmer Placed on the Table. 7:04:49 Disposable Defibrillator Pads Placed On Patient. 7:04:50 Julian Prominences Protected 7:04:52 A # 20 IV was noted in the Forearm (left). Grade = 0 0.9ns kvo 7:04:58 A # 20 IV was noted in the Wrist (right). Grade = 0 site painful. Will not be used. 7:05:00 History and physical on the chart. 7:06:53 Table restraints applied according to hospital policy 7:09:23 Bilateral groins prepped with 2% chlorhexidine, and draped after a 3 minute waiting time. 7:15:05 [employer] rep present to manage pacemaker per physician's orders. Assessment: Initial Case, AT=488 BPM, Rhythm=af, UNJD=724/108 mmhg, Chest Pain=0, Edema=None, Color=Normal, Skin = Warm, Dry Right Pulses: Thompson Ped=1 Left Pulses: Thompson Ped=1 7:17:55 Lower Right Extremities: Color=Normal Lower Left Extremities: Color=Normal Neurological: State=Alert, Ox3, GARDNER Respiration: Resp=24 B/min, IcY4=595 %, O2=6 lpm 7:29:18 New #20g IV inserted by anesthesia SANYA Osman to right wrist. 0.9 nacl @ kvo. 7:32:50 MD paged 7:33:12 MD arrived. Time Out. Correct patient, procedure, procedure equipment, site and side verified with physician present. Time 7:38:08 concurred by MD, individual staff and ANALYST PROGRAMMER. Time Out #2 - Consents verified, patient in correct position, all results are labled and display ed, safety precautions 7:38:39 taken, antibiotics administered. Time out concurred by MD, individual staff and ANALYST PROGRAMMER in procedur e 7:38:59 Case Start 7:39:15 Reference ECG taken 7:40:35 20 mL 1% XYLOCAINE given in lab by Amari Ozuna in Left Groin via Subcutaneous. 7:41:30 Vascular access was obtained in the Fem Vein (left). 7:41:34 Vascular access was obtained in the Fem Vein (left). 7:41:39 Vascular access was obtained in the Fem Vein (left). 7:42:07 A SHEATH, EPS, FR5 FAST CATH FR 5 was advanced into the Fem Art (right) using the Modified S eldinger technique. 7:42:18 A SHEATH, EPS, FR5 FAST CATH FR 5 was advanced into the Fem Vein (left) using the Modified S eldinger technique. 7:42:28 A SHEATH, EPS, FR5 FAST CATH FR 5 was advanced into the Fem Vein (left) using the Modified S eldinger technique. 7:42:39 20 mL 1% XYLOCAINE given in lab by Amari Ozuna in Right Groin via Subcutaneous. 7:42:51 Vascular access was obtained in the Fem Vein (right). 7:42:54 Vascular access was obtained in the Fem Vein (right). 7:43:06 A SHEATH, EPS, FR8 FAST CATH FR 8 was advanced into the Fem Vein (right) using the Modified Seldinger technique. 7:43:29 A SHEATH, EPS, FR6 FAST CATH FR 6 was advanced into the Fem Vein (right) using the Modified Seldinger technique. A CATHETER, JSN, QUAD FR 5 was advanced vis Fem Vein (left) and placed in the CS. Placement was visually 7:43:49 confirmed under fluoroscopy. A CATHETER, JSN, QUAD FR 5 was advanced vis Fem Vein (left) and placed in the HIS. Placement was visually 7:44:25 confirmed under fluoroscopy. A CATHETER, JSN, QUAD FR 5 was advanced vis Fem Vein (left) and placed in the HRA. Placement was visually 7:44:33 confirmed under fluoroscopy. A CATHETER, JSN, QUAD FR 5 was advanced vis Fem Vein (left) and placed in the RVA. Placement was visually 7:44:52 confirmed under fluoroscopy. A CATHETER, CELSIUS DS, 8MM, F TYPE QUAD FR 7 was advanced vis Fem Vein (right) and placed in th e Isthmus. 7:49:03 Placement was visually confirmed under fluoroscopy. 7:49:58 RF Ablation of the Isthmus with a CATHETER, CELSIUS DS, 8MM, F TYPE QUAD FR 7. 7:53:21 aflutter rhythm broken. Rhythm is now NSR rate 82. 7:55:44 EPS in progress. 10 mcg/min ISUPREL given in lab by Anesthesia, ANALYST PROGRAMMER via Peripheral IV. Pump/Drip Flow = 150 ml/h r using NaCl .9 7:57:10 with a concentration of 1 mg in 250 ml. Ordered by Amari Ozuna. Reason: As per physicians verb al order. 8:07:19 Isuprel infusion stopped. 8:08:59 All Catheters removed. 8:11:19 Case End 8:12:54 No case complications noted. 8:13:05 Cine recording checked. 8:14:52 EP Procedure was performed. 8:14:56 Ablation procedure performed: Aflutter. 8:15:24 Bilateral Sheaths removed; pressure applied to access sites. 8:19:20 Holding Area notified of successful intervention. 8:19:47 Bedside Report will be given. Assessment: Final Case, HR=60 BPM, Rhythm=nsr, PQUY=720/69 mmhg, Edema=None, Color=Normal, Ski n = Warm, Dry Right Pulses: Thompson Ped=1 Left Pulses: Thompson Ped=1 8:21:38 Lower Right Extremities: Color=Normal Lower Left Extremities: Color=Normal Neurological: State=Lethargic, Ox3, GARDNER Respiration: Resp=15 B/min, SpO2=97 %, O2=4 lpm 8:24:46 Defibrillator and ground pads removed. Skin intact. 8:27:35 Patient moved to stretcher End Study - Contrast Media Used In Study Contrast Total Opened (mL) Total Used (mL) Total Wasted (mL) Unspecified 0 0 0 End Study - Maximum Contrast Load Max Contrast Load (mL) 464.3 End Study - Radiation Exposure Fluoro Time (minutes) 3.7 End Study - Patient Disposition Complications Transferred To Interventional Outcome No Telemetry Bed successful
--- NOTE | 2017-04-14 09:17 | HHI.PR ---
Subjective Remarks Patient was seen after procedure. Says she has no pain or sob at this time. No n /v/d/c. She is however wants to talk with Dr Ozuna. Objective Vitals Vital Signs Date Time Temp Pulse Resp B/P (MAP) Pulse Ox O2 Delivery O2 Flow Rate FiO2 04/14/17 04:00 97.8 68 18 134/97 (109) 96 04/14/17 04:00 97.8 68 18 134/97 (109) 96 04/14/17 00:00 98.1 69 18 133/86 (102) 100 04/14/17 00:00 78 04/13/17 20:00 77 04/13/17 20:00 Room Air 04/13/17 20:00 97.5 87 18 121/87 (98) 99 04/13/17 16:30 98.0 76 22 134/80 (98) 95 04/13/17 16:05 72 04/13/17 12:00 80 04/13/17 12:00 97.8 78 20 120/90 (100) 96 I/O 04/13/17 04/13/17 04/13/17 04/14/17 04/14/17 04/14/17 07:00 15:00 23:00 07:00 15:00 23:00 Intake Total 240 ml 240 ml Balance 240 ml 240 ml Intake Oral 240 ml 240 ml # Voids 1 2 # Bowel Movements 0 0 Result Diagram: 04/14/17 0642 04/14/17 0642 Imaging Last Impressions Chest X-Ray 04/12/17 1258 Signed Impressions: Service Date/Time: Wednesday, April 12, 2017 13:18 - CONCLUSION: Pacer otherwise negative. Aaron Brambila MD FACR Objective Remarks GENERAL: This is a well-nourished, well-developed patient, in no apparent distress. SKIN: No rashes, ecchymoses or lesions. Cool and dry. CARDIOVASCULAR: Regular rate and rhythm without murmurs, gallops, or rubs. RESPIRATORY: Clear to auscultation. Breath sounds equal bilaterally. No wheezes , rales, or rhonchi. GASTROINTESTINAL: Abdomen soft, non-tender, nondistended. No guarding. MUSCULOSKELETAL: S/p cardiac cath Left wrist approach. Extremities without clubbing, cyanosis, or edema. No joint tenderness, effusion, or edema noted. No calf tenderness. Negative Homans sign bilaterally. NEUROLOGICAL: Awake and alert. Cranial nerves II through XII intact. Motor and sensory grossly within normal limits. Five out of 5 muscle strength in all muscle groups. Normal speech. A/P Problem List: (1) Accelerated hypertension ICD Code: I10 - Essential (primary) hypertension (2) Atrial flutter with rapid ventricular response ICD Code: I48.92 - Unspecified atrial flutter Status: Acute Assessment and Plan Ms. Verma is a 61 year old female with a history of complete heart block s/p pacemaker placement who was sent to the ED by her PCP due to high heart rate and high BP. In the ED, she was found to have atrial flutter with rates in the 130s range. Accelerated hypertension BP improved, currently asymptomatic Continue patient's home medications including metoprolol, diltiazem, lasix, Aldactone and lisinopril. She is also on Lisinopril 20mg Qday. Atrial flutter with RVR History of Complete heart block s/p pacemaker placement. Continue Metoprolol 50mg BID, Diltiazem 240mg Qday. Continue Apixaban 5mg BID for stroke prevention. Device interrogation. S/p EPS/ablation . Check TSH nl Chronic kidney disease stage III. Avoid nephrotoxins. Consider stopping Aldactone Full code. Apixaban, restart if okay with cardiology. Discharge Planning Discharge when cleared by cardiology likely DC tomorrow morning. {atient wants to talk with Dr Ozuna cardiology before going home tomorrow. Patient is s/p EPS / ablation 04/14/[address] Ozuna. Marielle John MD Apr 14, 2017 09:17
[2017-04-14] MEDS ORDERED: MORPHINE SULFATE 4 MG/ML INJ ONE (11:55)
[2017-04-14] MEDS: ASPIRIN 81 MG CHEW TAB CHEW SCH (12:56)
[2017-04-14] MEDS: DILTIAZEM-CD 240 MG CAP ER PO SCH (12:56)
[2017-04-14] MEDS: PANTOPRAZOLE SOD 40 MG DELAYED RELEASE TAB PO SCH (12:56)
[2017-04-14] MEDS: METOPROLOL TARTRATE 50 MG TAB PO SCH ×2 (12:56→21:21)
[2017-04-14] MEDS: SPIRONOLACTONE 25 MG TAB PO SCH (12:57)
[2017-04-14] MEDS: LISINOPRIL 20 MG TAB PO SCH ×2 (12:57→21:21)
[2017-04-14] MEDS: FUROSEMIDE 40 MG TAB PO SCH (12:57)
[2017-04-14] MEDS ORDERED: traMADol HCL 50 MG TAB PO PRN (13:00)
[2017-04-14] MEDS ORDERED: oxyCODONE/ACETAMINOPHEN 5 MG/325 MG TAB PO PRN ×2 (16:15)
[2017-04-14] MEDS: SODIUM CHLORIDE 0.9% FLUSH 10 ML FLUSH IV FLUSH SCH (21:00)
[2017-04-15] VITALS (14 sets, daily range): BP systolic 95–143; BP diastolic 58–89; PULSE 59–60; RESP 17–20; TEMP 97.5–98.4; O2SAT 95–97
--- NOTE | 2017-04-15 08:30 | PD.CARD.PN ---
Subjective Subjective Remarks Feeling better. Objective Medications Current Medications Medications (Trade) Dose Ordered Sig/Chip Route Start Time Stop Time Status Last Admin (NS Flush) 2 ml UNSCH PRN IV FLUSH 04/12/17 14:45 (NS Flush) 2 ml BID IV FLUSH 04/12/17 21:00 04/14/17 21:00 (Tylenol) 650 mg Q4H PRN PO 04/12/17 14:45 04/13/17 01:31 (Zofran Inj) 4 mg Q6H PRN IVP 04/12/17 14:45 (Reglan Inj) 5 mg Q6H PRN IV PUSH 04/12/17 14:45 (Narcan Inj) 0.4 mg UNSCH PRN IV PUSH 04/12/17 14:45 (Senokot) 17.2 mg Q12H PRN PO 04/12/17 14:45 (Dulcolax Supp) 10 mg DAILY PRN RECTAL 04/12/17 14:45 (Lactulose Liq) 30 ml DAILY PRN PO 04/12/17 14:45 (Aspirin Chew) 81 mg DAILY CHEW 04/13/17 09:00 04/14/17 12:56 (Lasix) 40 mg DAILY PO 04/13/17 09:00 04/13/17 09:26 (Prinivil) 20 mg BID PO 04/12/17 21:00 04/14/17 21:21 (Lopressor) 50 mg BID PO 04/12/17 21:00 04/14/17 21:21 (Protonix) 40 mg DAILY PO 04/13/17 09:00 04/14/17 12:56 (Aldactone) 25 mg DAILY PO 04/13/17 09:00 04/13/17 09:26 (Percocet 5-325 Mg) 1 tab Q4H PRN PO 04/14/17 16:15 (Percocet 5-325 Mg) 2 tab Q4H PRN PO 04/14/17 16:15 Vital Signs / I&O Vital Signs Date Time Temp Pulse Resp B/P (MAP) Pulse Ox O2 Delivery O2 Flow Rate FiO2 04/15/17 08:27 60 04/15/17 08:18 98 Room Air 04/15/17 08:06 98.4 60 17 143/86 (105) 95 04/15/17 07:00 60 11/30/17 06:31 60 04/15/17 05:19 60 04/15/17 04:41 60 04/15/17 03:16 60 04/15/17 03:00 97.5 59 95/58 (70) 95 04/15/17 02:01 60 04/15/17 01:24 60 04/15/17 00:00 60 04/14/17 23:00 97.8 60 118/74 (89) 97 04/14/17 23:00 60 04/14/17 22:00 60 04/14/17 21:00 60 04/14/17 20:00 97.8 60 112/73 (86) 96 04/14/17 20:00 Room Air 04/14/17 20:00 60 04/14/17 19:00 60 04/14/17 18:21 60 04/14/17 17:01 72 04/14/17 16:00 60 04/14/17 15:00 99 Room Air 04/14/17 15:00 98.0 60 19 125/72 (89) 99 04/14/17 15:00 68 04/14/17 08:45 98 Room Air I/O 04/14/17 04/14/17 04/14/17 04/15/17 04/15/17 04/15/17 07:00 15:00 23:00 07:00 15:00 23:00 Intake Total 240 ml 240 ml 240 ml Balance 240 ml 240 ml 240 ml Intake Oral 240 ml 240 ml 240 ml # Voids 2 1 3 # Bowel Movements 0 1 Physical Exam GENERAL: Well-nourished, well-developed patient. SKIN: Warm and dry. Groin site soft without bruising or bleeding. HEAD: Normocephalic. EYES: No scleral icterus. No injection or drainage. NECK: Supple, trachea midline. No JVD or lymphadenopathy. CARDIOVASCULAR: Regular rate and rhythm without murmurs, gallops, or rubs. RESPIRATORY: Breath sounds equal bilaterally. No accessory muscle use. GASTROINTESTINAL: Abdomen soft, non-tender, nondistended. EXTREMITIES: No cyanosis, or edema. NEUROLOGICAL: Awake, alert, and oriented x 3. Non-focal. Assessment and Plan Problem List: (1) Atrial flutter with rapid ventricular response ICD Codes: I48.92 - Unspecified atrial flutter Status: Acute Plan: Sinus rhythm on telemetry status post ablation. Resume eliquis. (2) S/P ablation of atrial flutter ICD Codes: Z98.890 - Other specified postprocedural states; Z86.79 - Personal history of other diseases of the circulatory system Plan: Groin sites stable, can be discharged home at the discretion of managing team. Resume eliquis prior to discharge. Alee Bruce Apr 15, 2017 08:30
[2017-04-15] MEDS: FUROSEMIDE 40 MG TAB PO SCH (09:00)
[2017-04-15] MEDS: SODIUM CHLORIDE 0.9% FLUSH 10 ML FLUSH IV FLUSH SCH (09:00)
[2017-04-15] MEDS: SPIRONOLACTONE 25 MG TAB PO SCH (09:00)
[2017-04-15] MEDS: ASPIRIN 81 MG CHEW TAB CHEW SCH (09:21)
[2017-04-15] MEDS: LISINOPRIL 20 MG TAB PO SCH (09:21)
[2017-04-15] MEDS: METOPROLOL TARTRATE 50 MG TAB PO SCH (09:22)
[2017-04-15] MEDS: PANTOPRAZOLE SOD 40 MG DELAYED RELEASE TAB PO SCH (09:22)
[2017-04-15] MEDS ORDERED: SODIUM CHLOR 0.9% 1000 ML INJ 1,000 ML IV SCH ×2 (09:30)
--- NOTE | 2017-04-15 10:54 | HHI.PR ---
Subjective Remarks in no acute distress. no chest pain or sob. wants to go home today. d/w the RN. Objective Vitals Vital Signs Date Time Temp Pulse Resp B/P (MAP) Pulse Ox O2 Delivery O2 Flow Rate FiO2 04/15/17 10:00 60 04/15/17 09:00 60 04/15/17 08:27 60 04/15/17 08:18 98 Room Air 04/15/17 08:06 98.4 60 17 143/86 (105) 95 04/15/17 07:00 60 04/15/17 06:31 60 04/15/17 05:19 60 04/15/17 04:41 60 04/15/17 03:16 60 04/15/17 03:00 97.5 59 95/58 (70) 95 04/15/17 02:01 60 04/15/17 01:24 60 04/15/17 00:00 60 04/14/17 23:00 97.8 60 118/74 (89) 97 04/14/17 23:00 60 04/14/17 22:00 60 04/14/17 21:00 60 04/14/17 20:00 97.8 60 112/73 (86) 96 04/14/17 20:00 Room Air 04/14/17 20:00 60 04/14/17 19:00 60 04/14/17 18:21 60 04/14/17 17:01 72 04/14/17 16:00 60 04/14/17 15:00 99 Room Air 04/14/17 15:00 98.0 60 19 125/72 (89) 99 04/14/17 15:00 68 I/O 04/14/17 04/14/17 04/14/17 04/15/17 04/15/17 04/15/17 07:00 15:00 23:00 07:00 15:00 23:00 Intake Total 240 ml 240 ml 240 ml Balance 240 ml 240 ml 240 ml Intake Oral 240 ml 240 ml 240 ml # Voids 2 1 3 # Bowel Movements 0 1 Result Diagram: 04/14/17 0642 04/14/17 0642 Imaging Last Impressions Chest X-Ray 04/12/17 1258 Signed Impressions: Service Date/Time: Wednesday, April 12, 2017 13:18 - CONCLUSION: Pacer otherwise negative. Aaron Brambila MD FACR Objective Remarks GENERAL: This is a well-nourished, well-developed patient, in no apparent distress. CARDIOVASCULAR: Regular rate and regular rhythm without murmurs, gallops, or rubs. RESPIRATORY: Clear to auscultation. Breath sounds equal bilaterally. No wheezes , rales, or rhonchi. GASTROINTESTINAL: Abdomen soft, non-tender, nondistended. Normal, active bowel sounds MUSCULOSKELETAL: Extremities without clubbing, cyanosis, or edema. NEURO: Alert & Oriented x4 to person, place, time, situation. Moves all ext x4 Procedures cardiac ablation. Medications and IVs Current Medications Sodium Chloride (NS Flush) 2 ml UNSCH PRN IVF FLUSH AFTER USING IV ACCESS; Start 04/12/17 at 13:00; Stop 04/12/17 at 14:59; Status DC Metoprolol Tartrate (Lopressor Inj) 5 mg Q5M IVS Last administered on 13:29; Start 04/12/17 at 13:00; Stop 04/12/17 at 13:11; Status DC Sodium Chloride (NS Flush) 2 ml UNSCH PRN IV FLUSH FLUSH AFTER USING IV ACCESS ; Start 04/12/17 at 14:45 Sodium Chloride (NS Flush) 2 ml BID IV FLUSH Last administered on 04/14/17 21 :00; Start 04/12/17 at 21:00 Acetaminophen (Tylenol) 650 mg Q4H PRN PO FEVER, HEADACHE Last administered on 04/13/17 01:31; Start 04/12/17 at 14:45 Ondansetron HCl (Zofran Inj) 4 mg Q6H PRN IVP NAUSEA OR VOMITING; Start at 14:45 Metoclopramide HCl (Reglan Inj) 5 mg Q6H PRN IV PUSH NAUSEA OR VOMITING; Start 04/12/17 at 14:45 Naloxone HCl (Narcan Inj) 0.4 mg UNSCH PRN IV PUSH SEE LABEL COMMENTS; Start 04/12/17 at 14:45 Magnesium Hydroxide (Milk Of Magnesia Liq) 30 ml Q12H PRN PO Mild constipation ; Start 04/12/17 at 14:45; Stop 04/13/17 at 08:29; Status DC Sennosides (Senokot) 17.2 mg Q12H PRN PO Moderate constipation; Start at 14:45 Bisacodyl (Dulcolax Supp) 10 mg DAILY PRN RECTAL SEVERE CONSITIPATION; Start 04/12/17 at 14:45 Lactulose (Lactulose Liq) 30 ml DAILY PRN PO SEVERE CONSITIPATION; Start 04/12 at 14:45 Apixaban (Eliquis) 5 mg BID PO Last administered on 04/12/17 21:37; Start at 21:00; Stop 04/12/17 at 21:45; Status DC Aspirin (Aspirin Chew) 81 mg DAILY CHEW Last administered on 04/15/17 09:21; Start 04/13/17 at 09:00 Diltiazem HCl (Cardizem Cd) 240 mg DAILY PO Last administered on 04/14/17 12: 56; Start 04/13/17 at 09:00; Stop 04/14/17 at 16:12; Status DC Furosemide (Lasix) 40 mg DAILY PO Last administered on 04/13/17 09:26; Start 04/13/17 at 09:00 Lisinopril (Prinivil) 20 mg BID PO Last administered on 04/15/17 09:21; Start 04/12/17 at 21:00 Metoprolol Tartrate (Lopressor) 50 mg BID PO Last administered on 04/15/17 09 :22; Start 04/12/17 at 21:00 Pantoprazole Sodium (Protonix) 40 mg DAILY PO Last administered on 04/15/17 09:22; Start 04/13/17 at 09:00 Spironolactone (Aldactone) 25 mg DAILY PO Last administered on 04/13/17 09:26 ; Start 04/13/17 at 09:00 Heparin Sodium/ Sodium Chloride 1,000 ml @ As Directed STK-MED ONCE .ROUTE Last administered on 04/14/17 07:09; Start 04/14/17 at 07:09; Stop 04/14/17 at 07:10; Status DC Isoproterenol HCl (Isuprel Inj) 1 mg STK-MED ONCE .ROUTE ; Start 04/14/17 at 07 :16; Stop 04/14/17 at 07:17; Status DC Sodium Chloride 250 ml @ As Directed STK-MED ONCE .ROUTE ; Start 04/14/17 at 07:16; Stop 04/14/17 at 07:17; Status DC Miscellaneous Information ALL NURSING DEPARTME... UNSCH PRN .XX SEE LABEL COMMENTS; Start 04/14/17 at 07:30; Stop 04/15/17 at 07:29; Status DC Morphine Sulfate (Morphine Inj) 4 mg STK-MED ONCE .ROUTE ; Start 04/14/17 at 11 :55; Stop 04/14/17 at 11:56; Status DC Tramadol HCl (Ultram) 50 mg Q6H PRN PO pain 3-10; Start 04/14/17 at 13:00; Stop 04/14/17 at 17:02; Status DC Oxycodone/ Acetaminophen (Percocet 5-325 Mg) 1 tab Q4H PRN PO PAIN SCALE 1 TO 4; Start 04/14/17 at 16:15 Oxycodone/ Acetaminophen (Percocet 5-325 Mg) 2 tab Q4H PRN PO PAIN SCALE 5 TO 10; Start 04/14/17 at 16:15 Sodium Chloride 1,000 ml @ 0 mls/hr Q0M IV ; Start 04/15/17 at 09:30 Sodium Chloride 1,000 ml @ 0 mls/hr Q0M IV ; Start 04/15/17 at 09:30 A/P Problem List: (1) Accelerated hypertension ICD Code: I10 - Essential (primary) hypertension (2) Atrial flutter with rapid ventricular response ICD Code: I48.92 - Unspecified atrial flutter Status: Acute Assessment and Plan A/P Accelerated hypertension BP improved, currently asymptomatic Continue metoprolol, lasix, Aldactone and lisinopril. hold cardizem for now f/u with PCP. Atrial flutter with RVR History of Complete heart block s/p pacemaker placement. s/p ablation Continue Metoprolol 50mg BID Continue Apixaban 5mg BID for stroke prevention. Chronic kidney disease stage III. Avoid nephrotoxins. Consider stopping Aldactone Discharge Planning dc home with f/u with pcp and cardiology. see med list. d/w the patient and TL. Ron Ramírez MD Apr 15, 2017 10:54
--- NOTE | 2017-04-15 10:57 | HHI.DS ---
Discharge Summary Admission Date Apr 12, 2017 at 14:41 Discharge Date: Apr 15, 2017 Admitting Diagnosis atrial flutter with RVR/hypertensive urgency (1) Accelerated hypertension ICD Code: I10 - Essential (primary) hypertension (2) Atrial flutter with rapid ventricular response ICD Code: I48.92 - Unspecified atrial flutter Status: Acute Procedures cardiac ablation. Brief History - From Admission Ms. Verma is a pleasant 61 year old female with a history of complete heart block s/p pacemaker placement who was sent to the ED by her PCP due to high blood pressure and high heart rate. Patient repeatedly mentions that she has no symptoms. She denies any chest pain, shortness of breath, fever , chills. Denies any dizziness, lightheadedness. She did not take her Lasix or Metoprolol this morning. She denies any changes in bowel or bladder habits. She received metoprolol IV 5mg in the ED. Her blood pressure improved 182/111 to 147 /112 and heart rate improved from 130s to about 90-100. CBC/BMP: 04/14/17 0642 04/14/17 0642 Significant Findings Laboratory Tests Test 04/12/17 13:25 04/12/17 13:35 04/13/17 08:09 04/14/17 06:42 Red Cell Distribution Width 17.5 % (11.6-17.2) Platelet Count 144 TH/MM3 (150-450) 132 TH/MM3 (150-450) 127 TH/MM3 (150-450) Lymphocytes (%) (Auto) 47.0 % (9.0-44.0) Monocytes (%) (Auto) 13.0 % (0.0-8.0) 14.0 % (0.0-8.0) 13.8 % (0.0-8.0) Prothrombin Time 12.5 SEC (9.8-11.6) Blood Urea Nitrogen 31 MG/DL (7-18) 29 MG/DL (7-18) 26 MG/DL (7-18) Creatinine 1.50 MG/DL (0.50-1.00) 1.42 MG/DL (0.50-1.00) 1.58 MG/DL (0.50-1.00) Estimat Glomerular Filtration Rate 42 ML/MIN (>89) 45 ML/MIN (>89) 40 ML/MIN (>89) Troponin I LESS THAN 0.02 NG/ML Mean Corpuscular Hemoglobin Concent 31.9 % (32.0-36.0) Chloride Level 108 MEQ/L (98-107) Imaging Last Impressions Chest X-Ray 04/12/17 9388 Signed Impressions: Service Date/Time: Wednesday, April 12, 2017 13:18 - CONCLUSION: Pacer otherwise negative. Aaron Brambila MD FACR PE at Discharge GENERAL: This is a well-nourished, well-developed patient, in no apparent distress. CARDIOVASCULAR: Regular rate and regular rhythm without murmurs, gallops, or rubs. RESPIRATORY: Clear to auscultation. Breath sounds equal bilaterally. No wheezes , rales, or rhonchi. GASTROINTESTINAL: Abdomen soft, non-tender, nondistended. Normal, active bowel sounds MUSCULOSKELETAL: Extremities without clubbing, cyanosis, or edema. NEURO: Alert & Oriented x4 to person, place, time, situation. Moves all ext x4 Hospital Course patient was admitted and initially started back on her home BP regimen- BP improved and since the blood pressure was on low-side at times, her cardizem was hold upon discharge. cardiology consulted and she underwent cardiac ablation. post-procedure course was uneventful and the patient was cleared for discharge per cardiology. she will remain on anticoagulation therapy with Eliquis. Pt Condition on Discharge: Good Discharge Disposition: Discharge Home Discharge Time: <= 30 minutes Discharge Instructions DIET: Follow Instructions for: Heart Healthy Diet Activities you can perform: Regular-No Restrictions Follow up Referrals: Cardiology PCP Follow-up Continued Medications: Apixaban (Eliquis) 5 Mg Tab 5 MG PO BID for Blood Clot Prevention, #60 TAB 0 Refills Aspirin (Aspirin) 81 Mg Chew 81 MG CHEW DAILY, TAB 0 Refills Furosemide (Furosemide) 40 Mg Tab 40 MG PO DAILY, #30 TAB 0 Refills Lisinopril (Lisinopril) 20 Mg Tab 20 MG PO BID, #30 TAB 0 Refills Metoprolol Tartrate (Metoprolol Tartrate) 50 Mg Tab 50 MG PO BID, #60 TAB 0 Refills Pantoprazole (Pantoprazole) 40 Mg Tab 40 MG PO DAILY for Reflux, #30 TAB 0 Refills Spironolactone (Spironolactone) 25 Mg Tab 25 MG PO DAILY, #30 TAB 0 Refills Discontinued Medications: Diltiazem CD 24 HR (Diltiazem CD 24 HR) 240 Mg Caper 240 MG PO DAILY, #30 CAP 0 Refills Ron Ramírez MD Apr 15, 2017 10:57
[2017-04-15] MEDS ORDERED: APIXABAN 5 MG TABLET PO ONE (11:00)
--- NOTE | 2017-04-15 15:58 | EKG ---
Date Performed: 04/14/2017 Time Performed: 14:35:40 PTAGE: 61 years EKG: Atrial pacing. Right bundle branch block Inferior/lateral ST-T changes may be due to myocar dial ischemia When compared to previous tracing, previously noted atrial flutter Is no longer present . There is now a right bundle branch block. Abnormal ECG PREVIOUS TRACING : 04/12/2017 13.48 DOCTOR: Tara Lock Interpretating Date/Time 04/15/2017 15:56:55
--- NOTE | 2017-04-15 15:58 | EKG ---
Date Performed: 04/14/2017 Time Performed: 18:24:56 PTAGE: 61 years EKG: Atrial pacing Right bundle branch block Lateral T wave changes are nonspecific Since previo us tracing, no significant change noted Abnormal ECG PREVIOUS TRACING : 04/14/2017 14.35.40 DOCTOR: Tara Lock Interpretating Date/Time 04/15/2017 15:57:49
--- NOTE | 2017-04-15 15:59 | EKG ---
Date Performed: 04/15/2017 Time Performed: 06:10:00 PTAGE: 61 years EKG: Atrial pacing Right bundle branch block Since previous tracing, no significant change noted Abnormal ECG PREVIOUS TRACING : 04/14/2017 18.24 DOCTOR: Tara Lock Interpretating Date/Time 04/15/2017 15:58:11
== END 2017-04-15 12:12 | disposition home or self-care (01) ==
LOC: NEPC 12:18 → NEDA 14:41 → N04B 16:35 → HCPC 04-14 09:52 → HCIS 04-14 14:51
PROVIDERS: ADMIT Internal Medicine; ATTEND Internal Medicine
DX: I16.0 Hypertensive urgency (principal); I48.92 Unspecified atrial flutter; I25.10 Atherosclerotic heart disease of native coronary artery without angina pectoris; I50.9 Heart failure, unspecified; R06.09 Other forms of dyspnea; I12.9 Hypertensive chronic kidney disease with stage 1 through stage 4 chronic kidney disease, or unspecified chronic kidney disease; F17.210 Nicotine dependence, cigarettes, uncomplicated; I44.2 Atrioventricular block, complete; Z79.899 Other long term (current) drug therapy; Z79.01 Long term (current) use of anticoagulants; Z95.0 Presence of cardiac pacemaker; E66.01 Morbid (severe) obesity due to excess calories
CPT/HCPCS: 71010; 80048; 82550; 83735; 84443; 84484; 85025; 85610; 85730; 93005; 93613; 93623; 93653; 96374; 99285; C1730; C1732; C2630; G0378; J1644; J2270; J7050